=== PATIENT | female | born 1955 | race Caucasian/White ===

== ENCOUNTER 2017-09-02 23:47 | Emergency (ER) | payer BC ==
[2017-09-02] MEDS ORDERED: Morphine INJ* 4 MG/ML 1 ML CARPUJECT IV ONE (23:51)
[2017-09-02] MEDS ORDERED: Ondansetron INJ* 2 MG/ML VIAL IV ONE (23:51)
[2017-09-02] MEDS: NS 0.9% 1000 ML* 2,000 ML IV ONE (23:59)
[2017-09-03 00:11] LABS: Hematocrit 42 % (35-47); Hemoglobin 14.6 g/dl (12.0-16.0); Mean Corpuscular HGB Conc 35 g/dl (31-36); Mean Corpuscular Hemoglobin 31 pg (27-31); Mean Corpuscular Volume 89 fL (80-97); Mean Platelet Volume 10 um3 (7.4-10.4); Red Blood Count 4.75 10^6/ul (4.0-5.4); Red Cell Distribution Width 13 % (10.5-15)
[2017-09-03 00:24] LABS: C Reactive Protein 7.02 mg/L (< 5.00); Calcium 8.9 mg/dL (8.6-10.3); EGFR African American 109.4 (>60); EGFR Non-African American 85.1 (>60); Globulin 3.1 g/dL (2-4); Potassium 3.4 mmol/L (3.5-5.0); Total Bilirubin 0.6 mg/dL (0.2-1.0); Total Protein 7.1 g/dL (6.4-8.9)
[2017-09-03] MEDS: NS 0.9% 1000 ML* 2,000 ML IV ONE (01:39)
[2017-09-03 02:04] LABS: Urine Bacteria Absent (Absent); Urine Bilirubin Negative (Negative); Urine Glucose Negative (Negative); Urine Nitrite Negative (Negative)
[2017-09-03] MEDS ORDERED: Levofloxacin TAB* 500 MG PO ONE ×2 (03:13→03:15)
[2017-09-03 03:47] VITALS: BP 104/37
--- NOTE | 2017-09-03 07:41 | RAD ---
CLINICAL HISTORY: Abdominal pain COMPARISON: None TECHNIQUE: Multiple contiguous axial CT scans were obtained of the abdomen and pelvis, without intravenous contrast enhancement. Coronal and sagittal multiplanar reformations are submitted for review. Oral contrast was not administered. FINDINGS: The study is limited by the lack of intravenous contrast. This limits evaluation of the solid organs and vasculature. LUNG BASES: The lung bases are clear. LIVER: The liver is normal in shape, size, contour, and attenuation. BILE DUCTS: There is no intrahepatic or extrahepatic biliary dilatation. GALLBLADDER: The gallbladder is not visualized. Surgical clips are noted in the gallbladder fossa. PANCREAS: The tail of the pancreas is atretic/hypoplastic. There is no pancreatic ductal dilatation or appreciable pancreatic mass. SPLEEN: Normal in size and appearance. UPPER GI TRACT: Evaluation of the gastrointestinal tract is limited by incomplete gastric distention. The upper GI tract is unremarkable. SMALL BOWEL AND MESENTERY: The small bowel is normal in contour, course, and caliber. There is no obstruction or dilatation. COLON: The colon is normal in contour, course, caliber. There is no pericolonic inflammatory change. There is a tubular, vermiform, hollow viscus that is blind ending, and originates from the cecum, consistent with a normal appendix. There is no periappendiceal inflammatory change. This is best seen on coronal images 56 through 64. ADRENALS: Normal bilaterally. KIDNEYS: There are parapelvic cysts. There is no appreciable hydronephrosis. There is a punctate nonobstructing calculus of the report of the right kidney on axial image 59 BLADDER: The bladder is smooth in contour. PELVIC ORGANS: The uterus and adnexa are grossly normal for technique. AORTA: The aorta is normal. IVC: Unremarkable LYMPH NODES: There is no lymphadenopathy by size criteria. ABDOMINAL WALL: There is no evidence for abdominal wall hernia. BONES AND SOFT TISSUES: There are mild diffuse degenerative changes. OTHER: None IMPRESSION: PUNCTATE NONOBSTRUCTING RIGHT RENAL STONE. NO HYDRONEPHROSIS.
--- NOTE | 2017-09-05 08:59 | PN ---
Progress Note - Progress Note Date of Service: 09/03/17 Note: diagnosed and treated for UTI. culture results show 1-10,000 of group b strep. d/c on levofloxacin. no further action required at this time
--- NOTE | 2017-09-22 03:30 | ED ---
Asia Lopez Thomas, scribed for Ellen Coto MD on 09/03/17 at 0006 . Abdominal Pain/Female - HPI Summary HPI Summary: The pt is a 61 y/o F presenting to the ED c/o LLQ abd pain that began about 90 minutes ago. The pain began when she tried to urinate. The pain is waxing and waning. The pain is rated 10/10. The pain is aggravated by nothing and is alleviated by nothing. 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 She had similar pain yesterday that spontaneously resolved. Pt additionally c/o diaphoresis. PSHx includes cholecystectomy and gallbladder removal. - History of Current Complaint Chief Complaint: EDFlankPain Stated Complaint: FLANK PAIN Time Seen by Provider: 09/02/17 23:59 Hx Obtained From: Patient Hx Last Menstrual Period: n/a Onset/Duration: Lasting Minutes - 90, Still Present Timing: Constant - waxing and waning Severity Currently: Severe Pain Intensity: 10 Pain Scale Used: 0-10 Numeric Location: Discrete At: LLQ Aggravating Factor(s): Nothing Alleviating Factor(s): Nothing Associated Signs and Symptoms: Positive: Diaphoresis Allergies/Adverse Reactions: Allergies Allergy/AdvReac Type Severity Reaction Status Date / Time Ketorolac Tromethamine Allergy Abdominal Verified 07/24/16 20:27 [From Toradol] Pain Naproxen Allergy Abdominal Verified 07/24/16 20:27 Pain Ibuprofen AdvReac Abdominal Verified 07/24/16 20:27 Pain ENVIRONMENTAL Allergy Unknown Uncoded 07/24/16 20:27 Reaction Details PMH/Surg Hx/FS Hx/Imm Hx Previously Healthy: No Endocrine/Hematology History: Denies: Hx Diabetes Cardiovascular History: Denies: Hx Pacemaker/ICD, Other Cardiovascular Problems/Disorders Comment Only: Hx Hypertension - usually normal til today Respiratory History: Reports: Hx Asthma - SLIGHT FROM BRONCHITIS Denies: Other Respiratory Problems/Disorders GI History: Reports: Hx Gastroesophageal Reflux Disease - OCCASIONAL Comment Only: Hx Ulcer - DENIES History: Denies: Hx Renal Disease Musculoskeletal History: Reports: Other Musculoskeletal History - DDD NECK Sensory History: Reports: Hx Contacts or Glasses - GLASSES Denies: Hx Hearing Aid Opthamlomology History: Reports: Hx Contacts or Glasses - GLASSES Neurological History: Denies: Other Neuro Impairments/Disorders Psychiatric History: Denies: Hx Panic Disorder - Surgical History Surgery Procedure, Year, and Place: gallbladder, 1995, [facility]. 2 c-sections, 1975 , 1977. ANKLE FX, 2015, LEFT ANKLE, [facility]. TONSILECTOMY. right rotator cuff Hx Anesthesia Reactions: No - Immunization History Date of Tetanus Vaccine: Unk Date of Influenza Vaccine: None Infectious Disease History: No Infectious Disease History: Denies: Hx Clostridium Difficile, Hx Hepatitis, Hx Human Immunodeficiency Virus (HIV), Hx of Known/Suspected MRSA, Hx Shingles, Hx Tuberculosis, Hx Known/ Suspected VRE, Hx Known/Suspected VRSA, History Other Infectious Disease, Traveled Outside the [place] in Last 30 Days - Family History Known Family History: Positive: Hypertension, Respiratory Disease - Social History Alcohol Use: Weekly Alcohol Amount: 1 PER WEEK Hx Substance Use: No Substance Use Type: Reports: None Hx Tobacco Use: No Smoking Status (MU): Never Smoked Tobacco Have You Smoked in the Last Year: No Review of Systems Positive: Skin Diaphoresis. Negative: Fever Positive: Abdominal Pain - LLQ All Other Systems Reviewed And Are Negative: Yes Physical Exam - Summary Physical Exam Summary: VITAL SIGNS: Reviewed. GENERAL: ~Patient is a well-developed and nourished (MALE OR FEMALE) who is lying comfortable in the stretcher. ~Patient is not in any acute respiratory distress. HEAD AND FACE: No signs of trauma. ~No ecchymosis, hematomas or skull depressions. No sinus tenderness. EYES: PERRLA, EOMI x 2, No injected conjunctiva, no nystagmus. EARS: Hearing grossly intact. Ear canals and tympanic membranes are within normal limits. MOUTH: Oropharynx within normal limits. NECK: Supple, trachea is midline, no adenopathy, no JVD, no carotid bruit, no c- spine tenderness, neck with full ROM. CHEST: Symmetric, no tenderness at palpation LUNGS: Clear to auscultation bilaterally. No wheezing or crackles. CVS: Regular rate and rhythm, S1 and S2 present, no murmurs or gallops appreciated. ABDOMEN: She has mild LLQ tenderness. Soft. No signs of distention. No rebound no guarding, and no masses palpated. Bowel sounds are normal. BACK: She has mild left CVA tenderness. EXTREMITIES: FROM in all major joints, no edema, no cyanosis or clubbing. NEURO: Alert and oriented x 3. No acute neurological deficits. Speech is normal and follows commands. SKIN: Dry and warm Triage Information Reviewed: Yes Vital Signs On Initial Exam: Initial Vitals Temp Pulse Resp BP Pulse Ox 98.2 F 70 24 151/50 100 09/02/17 23:50 09/02/17 23:50 09/02/17 23:50 09/02/17 23:50 09/02/17 23:50 Vital Signs Reviewed: Yes Diagnostics - Vital Signs Vital Signs Temp Pulse Resp BP Pulse Ox 09/02/17 23:58 20 09/02/17 23:50 98.2 F 70 24 151/50 100 - Laboratory Result Diagrams: 09/02/17 23:50 09/02/17 23:50 Lab Statement: Any lab studies that have been ordered have been reviewed, and results considered in the medical decision making process. - CT CT Abd/Pel CT Interpretation: No Acute Changes - Punctate stone right kidney. No ureterolithiasis or obstructive uropathy. No bladder calculi. Probable parapelvic cysts lower pole left kidney. Unremarkable pancreas. Cholecystectomy. No bowel obstruction, colitis, diverticulitis, free fluid or free air. Normal appendix. No inguinal-region hernias. ED physician has reviewed this report and agrees. CT Interpretation Completed By: Radiologist Re-Evaluation - Re-Evaluation First Eval Re-Evaluation Time: 03:12 Change: Improved Comment: I informed the patient of the labs and CT results. She is feeling better. Abdominal Pain Fem Course/Dx - Course Course Of Treatment: The pt is a 61 y/o F presenting to the ED c/o LLQ abd pain that began about 90 minutes ago. The pain began when she tried to urinate. The pain is waxing and waning. The pain is rated 10/10. The pain is aggravated by nothing and is alleviated by nothing. 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 She had similar pain yesterday that spontaneously resolved. Pt additionally c/o diaphoresis. PSHx includes cholecystectomy and gallbladder removal. In the ED course the patient was given IV fluids, morphine, and Zofran. Bloodwork was obtained. UA shows 3+ blood, 2+ leukocyte esterase, 3+ WBC , and 3+ RBC. CT Abd/Pel obtained with results earlier in this report. The patient is diagnosed with UTI. The patient is instructed to follow up with primary care. The patient is prescribed antibiotics. Patient is agreeable with this plan. - Diagnoses Provider Diagnoses: UTI (urinary tract infection) Discharge - Discharge Plan Condition: Stable Disposition: HOME Patient Education Materials: Urinary Tract Infection in Women (ED) Referrals: Hal Orozco MD [Primary Care Provider] - 3 Days Additional Instructions: Follow up with your primary care provider in 3 days. Return to the emergency department for any new or worsening symptoms. The documentation as recorded by the Asia pérez Thomas accurately reflects the service I personally performed and the decisions made by , Ellen Coto MD.
== END 2017-09-03 04:21 | disposition home or self-care (01) ==
LOC: ED 23:47
DX: N39.0 Urinary tract infection, site not specified (principal); B95.1 Streptococcus, group B, as the cause of diseases classified elsewhere; I10 Essential (primary) hypertension
CPT/HCPCS: 36415; 74176; 80053; 81003; 81015; 83690; 85025; 86140; 87077; 87086; 96360; 96374; 96375; 99282; J2270; J2405

== ENCOUNTER 2017-11-22 07:22 | Emergency (ER) | payer BC ==
[2017-11-22 07:39] VITALS: BP 137/71
--- NOTE | 2017-11-22 08:31 | UC ---
Headache HPI - HPI Summary HPI Summary: SUDDEN ONSET YESTERDAY OF LEFT PARIETAL ARCINIEGA. "FEELS LIKE SOMEONE IS STABBING ME IN THE HEAD". DENIES ANY HEARING LOSS OR DENTAL PAIN. PT DOES NOT NORMALLY GET HEADACHES. NO NAUSEA OR FEVER BUT DOES REPORT ABOUT 2 WEEKS OF NIGHT SWEATS AND INTERMITTENT DIZZINESS OVER THE PAST WEEK. DENIES ANY VISUAL DISTURBANCES OF FOCAL NEUROLOGIC DEFICITS. PAIN COMES ON SUDDENLY, LASTS FOR A FEW SECONDS THEN RESOLVES LEAVING A RESIDUAL MILD DISCOMFORT. HAS MULTIPLE EPISODES PER HOUR. - History Of Current Complaint Chief Complaint: UCEar Stated Complaint: EAR PAIN PAIN ON SIDE OF HEAD Time Seen by Provider: 11/22/17 08:00 Hx Obtained From: Patient, Family/Supervisor [employer] - Hx Last Menstrual Period: n/a Onset/Duration: Sudden Onset, Lasting Hours, Still Present Pain Intensity: 3 - 10/10 AT IT'S WORST Pain Scale Used: 0-10 Numeric Character: Sharp Location of Headache: Parietal Aggravating Factor(s): Nothing Allevating Factor(s): Nothing Associated Signs And Symptoms: Positive: Dizziness. Negative: Nausea, Vomiting , Fever, Neck Pain, Neck Stiffness, Decreased LOC, Visual Changes - Allergies/Home Medications Allergies/Adverse Reactions: Allergies Allergy/AdvReac Type Severity Reaction Status Date / Time MS Ketorolac Tromethamine Allergy Abdominal Verified 11/22/17 07:39 [From Toradol] Pain MS Naproxen [Naproxen] Allergy Abdominal Verified 11/22/17 07:39 Pain MS Ibuprofen [Ibuprofen] AdvReac Abdominal Verified 11/22/17 07:39 Pain ENVIRONMENTAL Allergy Unknown Uncoded 11/22/17 07:39 Reaction Details PMH/Surg Hx/FS Hx/Imm Hx Respiratory History: Asthma - Surgical History Surgical History: Yes Surgery Procedure, Year, and Place: gallbladder, 1995, [facility]. 2 c-sections, 1975 , 1977. ANKLE FX, 2015, LEFT ANKLE, [facility]. TONSILECTOMY. right rotator cuff - Family History Known Family History: Positive: Hypertension, Respiratory Disease Family History: PROSTATE CANCER - DAD - Social History Alcohol Use: Weekly Alcohol Amount: 1 PER WEEK Substance Use Type: None Smoking Status (MU): Never Smoked Tobacco Have You Smoked in the Last Year: No Review of Systems Constitutional: Fatigue, Other - NIGHT SWEATS ENT: Ear Ache Respiratory: Negative Cardiovascular: Negative Gastrointestinal: Negative Musculoskeletal: Negative Neurological: Headache, Other - DIZZINESS All Other Systems Reviewed And Are Negative: Yes Physical Exam Triage Information Reviewed: Yes Appearance: Well-Appearing, Well-Nourished, Pain Distress - MOD Vital Signs: Initial Vital Signs Temp 97.3 F 11/22/17 07:35 Pulse 67 11/22/17 07:35 Resp 20 11/22/17 07:35 BP 137/71 11/22/17 07:35 Pulse Ox 96 11/22/17 07:35 Vital Signs Reviewed: Yes Eyes: Positive: Conjunctiva Clear ENT: Positive: Hearing grossly normal, Pharynx normal, TMs normal Neck: Positive: Supple, Nontender, No Lymphadenopathy Respiratory Exam: Normal Cardiovascular Exam: Normal Abdomen Description: Positive: Soft Musculoskeletal: Positive: ROM Intact, No Edema Neurological: Positive: Alert, Muscle Tone Normal, Other: - CN II-XII GROSSLY INTACT BILATERALLY. NEG PRONATOR DRIFT. FINGER TO NOSE INTACT BILATERALLY. HEEL TO SELBY INTACT BILATERALLY. RAPID ALTERNATING MVMTS INTACT. 5/5 STRENGTH Psychological: Positive: Normal Response To Family, Age Appropriate Behavior Skin: Negative: rashes Headache Course/Dx - Course Course Of Treatment: GIVEN SX OF NEW ONSET ARCINIEGA WITH RECENT NIGHT SWEATS AND DIZZINESS, CONCERN FOR INTRACRANIAL PATHOLOGY. RECOMMEND ED FOR FURTHER EVAL. - Differential Dx/Diagnosis Provider Diagnoses: ACUTE HEADACHE Discharge - Discharge Plan Condition: Stable Disposition: OTHER Discharge Disposition Comment: [place] [facility] [place] [facility] Patient Education Materials: Acute Headache (ED) Referrals: Hal Orozco MD [Primary Care Provider] - If Needed Additional Instructions: GIVEN YOUR SYMPTOMS OF NEW ONSET HEADACHE WITH RECENT NIGHT SWEATS AND DIZZINESS WOULD RECOMMEND YOU GO DIRECTLY TO THE [facility] FROM HERE FOR FURTHER EVAL.
== END 2017-11-22 08:25 ==
LOC: UCEAST 07:22
DX: R51 Headache (principal); R42 Dizziness and giddiness; R61 Generalized hyperhidrosis; J45.909 Unspecified asthma, uncomplicated; Z88.6 Allergy status to analgesic agent; Z88.5 Allergy status to narcotic agent; Z90.49 Acquired absence of other specified parts of digestive tract
CPT/HCPCS: 99212; G0463

== ENCOUNTER 2017-11-22 08:46 | Emergency (ER) | payer BC ==
[2017-11-22 09:40] LABS: ABS Basophils 0.1 10^3/ul (0-0.2); ABS Eosinophils 0.1 10^3/ul (0-0.6); ABS Lymphocytes 2.3 10^3/ul (1.0-4.8); ABS Monocytes 0.6 10^3/ul (0-0.8); ABS Neutrophils 3.2 10^3/ul (1.5-7.7); ABS Nucleated RBC 0 10^3/ul; Eosinophil % 1.7 % (0-6); Hematocrit 43 % (35-47); Hemoglobin 14.7 g/dl (12.0-16.0); Lymphocyte % 36.1 % (25-47); Mean Corpuscular HGB Conc 34 g/dl (31-36); Mean Corpuscular Hemoglobin 31 pg (27-31); Mean Corpuscular Volume 90 fL (80-97); Mean Platelet Volume 11 um3 (7.4-10.4); Nucleated Red Blood Cells % 0.1; Platelet Count 201 10^3/ul (150-450); Red Blood Count 4.79 10^6/ul (4.0-5.4); Red Cell Distribution Width 13 % (10.5-15); White Blood Count 6.4 10^3/ul (3.5-10.8)
--- NOTE | 2017-11-22 10:07 | RAD ---
INDICATION: Dizziness. COMPARISON: Comparison is made with a prior CT of the brain from August 04, 2011. TECHNIQUE: Contiguous axial sections of the brain were obtained from the skull base to the vertex without contrast. FINDINGS: The ventricles, cisterns and sulci are within normal limits. There is suggestion of a small area of encephalomalacia in the posterior right cerebellar hemisphere which is unchanged. No significant focal abnormality or mass effect is seen. There is no evidence for hemorrhage. No significant focal osseous abnormality is seen. The visualized portion of the paranasal sinuses and mastoid air cells appear clear. IMPRESSION: NO EVIDENCE FOR ACUTE INTRACRANIAL ABNORMALITY.
[2017-11-22 11:02] VITALS: BP 140/78
--- NOTE | 2017-11-22 13:28 | ED ---
Headache - HPI Summary HPI Summary: Patient presents to the ED with chief complaint of left parietal headache with intermittent dizziness 1 week. She has never had this before, denies any history of migraines or headaches. Denies any shortness of breath or chest pain. Has no cardiac history, but endorses a strong family history. She denies fever, upper respiratory infection, other recent illness or sick contacts. She has been feeling otherwise well. Denies any trauma to the head. While she endorses mild intermittent dizziness which comes in waves while having the headache, she notes to the headache as her primary complaint. She states the headache is "not worst of life " however also states that at its worst, it is rated 10 out of 10. Denies any known history of temporal arteritis or other vasculitis. She has been experiencing hot and cold symptoms to which she associates with postmenopausal, although it has been several years since she has had these symptoms until one week ago. She is close follow-up with her PCP and is able to see them next week. Denies visual changes, memory loss, confusion, or other neurological deficits. Denies smoking, drug use, medication changes or hypertension. - History Of Current Complaint Chief Complaint: EDHeadache Stated Complaint: HEADACHE Time Seen by Provider: 11/22/17 09:03 Hx Obtained From: Patient Hx Last Menstrual Period: n/a Onset/Duration: Started weeks ago Initially Headache Was: Initial Pain Scale(0-10)= - 10 Currently Pain Is: Current Pain Scale(0-10)= - 5, Mild Timing: Constant Character: Throbbing Aggravating Factor: Nothing Allevating Factors: Nothing - Risk Factors SAH Risk Factors: Negative Meningitis Risk Factors: Negative SDH Risk Factors: Negative Temporal Arteritis Risk Factors: Female, , Greater Than 60 Years Old - Allergies/Home Medications Allergies/Adverse Reactions: Allergies Allergy/AdvReac Type Severity Reaction Status Date / Time MS Ketorolac Tromethamine Allergy Abdominal Verified 11/22/17 07:39 [From Toradol] Pain MS Naproxen [Naproxen] Allergy Abdominal Verified 11/22/17 07:39 Pain MS Ibuprofen [Ibuprofen] AdvReac Abdominal Verified 11/22/17 07:39 Pain ENVIRONMENTAL Allergy Unknown Uncoded 11/22/17 07:39 Reaction Details Home Medications: Home Medications Esomeprazole(NF) [NEXium(NF)] 20 mg PO DAILY PRN 11/22/17 [History Confirmed 07/01] Multivitamins/Minerals TAB* [Theragran/minerals TAB*] 1 tab PO DAILY 11/22/17 [ History Confirmed 11/22/17] PMH/Surg Hx/FS Hx/Imm Hx Previously Healthy: Yes Endocrine/Hematology History: Denies: Hx Diabetes, Hx Thyroid Disease Cardiovascular History: Denies: Hx Hypertension - usually normal til today, Hx Pacemaker/ICD, Other Cardiovascular Problems/Disorders Respiratory History: Reports: Hx Asthma - SLIGHT FROM BRONCHITIS Denies: Other Respiratory Problems/Disorders GI History: Reports: Hx Gastroesophageal Reflux Disease - OCCASIONAL Denies: Hx Ulcer - DENIES History: Denies: Hx Renal Disease Musculoskeletal History: Reports: Other Musculoskeletal History - DDD NECK Sensory History: Reports: Hx Contacts or Glasses - GLASSES Denies: Hx Hearing Aid Opthamlomology History: Reports: Hx Contacts or Glasses - GLASSES Neurological History: Denies: Other Neuro Impairments/Disorders Psychiatric History: Denies: Hx Panic Disorder - Surgical History Surgery Procedure, Year, and Place: gallbladder, 1995, [facility] [place]. 2 c-sections, 1975 , 1977. ANKLE FX, 2015, LEFT ANKLE, [facility]. TONSILECTOMY. right rotator cuff Hx Anesthesia Reactions: No - Immunization History Date of Tetanus Vaccine: Unk Date of Influenza Vaccine: None Hx Pertussis Vaccination: No Immunizations Up to Date: Unable to Obtain/Confirm Infectious Disease History: No Infectious Disease History: Denies: Hx Clostridium Difficile, Hx Hepatitis, Hx Human Immunodeficiency Virus (HIV), Hx of Known/Suspected MRSA, Hx Shingles, Hx Tuberculosis, Hx Known/ Suspected VRE, Hx Known/Suspected VRSA, History Other Infectious Disease, Traveled Outside the [place] in Last 30 Days - Family History Known Family History: Positive: Hypertension, Respiratory Disease Family History: PROSTATE CANCER - DAD - Social History Occupation: Employed Full-time Lives: With Family Alcohol Use: Occasionally Alcohol Amount: 1 PER WEEK Hx Substance Use: No Substance Use Type: Reports: None Hx Tobacco Use: No Smoking Status (MU): Never Smoked Tobacco Have You Smoked in the Last Year: No Review of Systems Constitutional: Negative Negative: Fever, Chills, Fatigue Eyes: Negative Respiratory: Negative Gastrointestinal: Negative Positive: no symptoms reported, see HPI Musculoskeletal: Negative Skin: Negative Neurological: Other - intermittent dizziness Positive: Headache All Other Systems Reviewed And Are Negative: Yes Physical Exam Triage Information Reviewed: Yes Vital Signs On Initial Exam: Initial Vitals Temp Pulse Resp BP Pulse Ox 97.3 F 60 17 154/84 96 11/22/17 09:05 11/22/17 09:05 11/22/17 09:05 11/22/17 09:05 11/22/17 09:05 Vital Signs Reviewed: Yes Appearance: Positive: Well-Appearing, Well-Nourished Skin: Positive: Warm, Skin Color Reflects Adequate Perfusion Head/Face: Positive: Normal Head/Face Inspection Eyes: Positive: EOMI, ADINA Neck: Positive: Supple, No Lymphadenopathy Respiratory/Lung Sounds: Positive: Breath Sounds Present Cardiovascular: Positive: RRR, Pulses are Symmetrical in both Upper and Lower Extremities Musculoskeletal: Positive: Normal, Strength/ROM Intact Neurological: Positive: Speech Normal Psychiatric: Positive: Normal, Affect/Mood Appropriate AVPU Assessment: Alert Diagnostics - Vital Signs Vital Signs Temp Pulse Resp BP Pulse Ox 11/22/17 11:01 60 16 140/78 96 11/22/17 10:53 66 95 11/22/17 10:00 68 161/101 97 11/22/17 09:31 63 148/76 96 11/22/17 09:10 133/66 11/22/17 09:09 59 96 11/22/17 09:05 97.3 F 60 17 154/84 96 - Laboratory Lab Results: Lab Results 11/22/17 11/22/17 11/22/17 Range/Units 09:30 09:30 09:30 WBC 6.4 (3.5-10.8) 10^3/ul RBC 4.79 (4.0-5.4) 10^6/ul Hgb 14.7 (12.0-16.0) g/dl Hct 43 (35-47) % MCV 90 (80-97) fL MCH 31 (27-31) pg MCHC 34 (31-36) g/dl RDW 13 (10.5-15) % Plt Count 201 (150-450) 10^3/ul MPV 11 H (7.4-10.4) um3 Neut % (Auto) 51.2 (38-83) % Lymph % (Auto) 36.1 (25-47) % [place] % (Auto) 9.9 H (1-9) % Eos % (Auto) 1.7 (0-6) % Baso % (Auto) 1.1 (0-2) % Absolute Neuts (auto) 3.2 (1.5-7.7) 10^3/ul Absolute Lymphs (auto) 2.3 (1.0-4.8) 10^3/ul Absolute Monos (auto) 0.6 (0-0.8) 10^3/ul Absolute Eos (auto) 0.1 (0-0.6) 10^3/ul Absolute Basos (auto) 0.1 (0-0.2) 10^3/ul Absolute Nucleated RBC 0 10^3/ul Nucleated RBC % 0.1 ESR 30 (0-30) mm/Hr Sodium 133 (133-145) mmol/L Potassium 4.0 (3.5-5.0) mmol/L Chloride 102 (101-111) mmol/L Carbon Dioxide 25 (22-32) mmol/L Anion Gap 6 (2-11) mmol/L BUN 17 (6-24) mg/dL Creatinine 0.73 (0.51-0.95) mg/dL Est GFR ( Amer) 104.2 (>60) Est GFR (Non-Af Amer) 81.0 (>60) BUN/Creatinine Ratio 23.3 H (8-20) Glucose 126 H (70-100) mg/dL Calcium 9.5 (8.6-10.3) mg/dL Total Bilirubin 0.50 (0.2-1.0) mg/dL AST 16 (13-39) U/L ALT 14 (7-52) U/L Alkaline Phosphatase 57 (34-104) U/L Troponin I 0.00 (<0.04) ng/mL C-Reactive Protein 6.13 H (< 5.00) mg/L B-Natriuretic Peptide 140 H ( - 100) pg/mL Total Protein 7.0 (6.4-8.9) g/dL Albumin 4.1 (3.2-5.2) g/dL Globulin 2.9 (2-4) g/dL Albumin/Globulin Ratio 1.4 (1-3) Result Diagrams: 11/22/17 09:30 02 09:30 Lab Statement: Any lab studies that have been ordered have been reviewed, and results considered in the medical decision making process. Headache Course/Dx - Course Course Of Treatment: During the course of treatment, the patient is evaluated for left-sided parietal and temporal headache without associated aura, photophobia, phonophobia. Intermittent dizziness as well. Symptoms have been present for 1 week. No tearing to be concerned for cluster headaches, left- sided only with less concerned for tension headache. Due to age, female, , she is higher risk for temporal arteritis, ESR obtained and negative at only 30. No sinus pressure for concern for sinus headache. Denies any recent stressors. I have advised we obtain a CT of the brain and baseline labs. All labs obtained and within normal limits. CT brain shows no active or acute pathology. I discussed the results with the patient. I discussed, I am unable to rule in the reason for her headaches, but am able to rule out to a marginal degree many more concerning/emergent conclusions. Troponin negative. Vital signs stable, including blood pressure. No visual changes or signs of end organ damage. She is okay to follow up with her PCP regarding worsening symptoms, I have advised if the headaches continue, to return to the ED or follow-up with neurology. She agrees with this plan and voices no concerns at this time and is okay for discharge at this time. She is advised to take Tylenol 650 mg for headache. - Diagnoses Differential Diagnosis/HQI/PQRI: Migraine, Sinus Headache, Temporal Arteritis, Tension Headache, Viral Syndrome Provider Diagnoses: Headache Discharge - Discharge Plan Condition: Stable Disposition: HOME Patient Education Materials: General Headache (ED) Referrals: Hal Orozco MD [Primary Care Provider] - Danny Croft MD [Medical Doctor] - Additional Instructions: Please follow up with PCP If any symptoms become worse, follow-up with a neurologist I have given your referral Tylenol 650 mg up to 3-4 times daily for any headache Drink plenty of water Rest
== END 2017-11-22 11:01 | disposition home or self-care (01) ==
LOC: ED 08:46
DX: R51 Headache (principal); Z88.6 Allergy status to analgesic agent; Z88.5 Allergy status to narcotic agent
CPT/HCPCS: 36415; 70450; 80053; 83880; 84484; 85025; 85652; 86140; 93005; 99282

== ENCOUNTER 2019-04-24 14:53 | Emergency (ER) | payer BC ==
[2019-04-24 16:30] VITALS: BP 141/73
--- NOTE | 2019-04-24 16:32 | ED ---
Skin Complaint - HPI Summary HPI Summary: Patient is a 63-year-old female who presents emergency department for redness and warmth to her right lower arm 3-4 days. Patient states she was outside in the garden Saturday and believes she was bit by an insect her right arm. Patient states that areas aggressively gotten redder and larger. Patient states she did outline the area in pen and states that redness spread outside of lines. No fever, chills, nausea, vomiting, headache, joint pain. Patient is not diabetic. Symptoms are mild in severity. No current modifying factors. - History of Current Complaint Chief Complaint: EDAnimalBite Time Seen by Provider: 04/24/19 16:06 Stated Complaint: BUG BITE PER PT Hx Obtained From: Patient Hx Last Menstrual Period: n/a Pain Intensity: 0 - Allergy/Home Medications Allergies/Adverse Reactions: Allergies Allergy/AdvReac Type Severity Reaction Status Date / Time NSAIDS (Non-Steroidal Allergy Abdominal Verified 04/24/19 15:00 Anti-Inflamma Pain PMH/Surg Hx/FS Hx/Imm Hx Previously Healthy: Yes Endocrine/Hematology History: Denies: Hx Diabetes, Hx Thyroid Disease Cardiovascular History: Denies: Hx Hypertension - usually normal til today, Hx Pacemaker/ICD, Other Cardiovascular Problems/Disorders Respiratory History: Reports: Hx Asthma - SLIGHT FROM BRONCHITIS Denies: Other Respiratory Problems/Disorders GI History: Reports: Hx Gastroesophageal Reflux Disease - OCCASIONAL Denies: Hx Ulcer - DENIES History: Denies: Hx Renal Disease Musculoskeletal History: Reports: Other Musculoskeletal History - DDD NECK Sensory History: Reports: Hx Contacts or Glasses - GLASSES Denies: Hx Hearing Aid Opthamlomology History: Reports: Hx Contacts or Glasses - GLASSES Neurological History: Denies: Other Neuro Impairments/Disorders Psychiatric History: Denies: Hx Panic Disorder - Surgical History Surgery Procedure, Year, and Place: gallbladder, 1995, [facility]. 2 c-sections, 1975 , 1977. ANKLE FX, 2015, LEFT ANKLE, [facility]. TONSILECTOMY. right rotator cuff Hx Anesthesia Reactions: No - Immunization History Date of Tetanus Vaccine: Unk Date of Influenza Vaccine: None Infectious Disease History: No Infectious Disease History: Denies: Hx Clostridium Difficile, Hx Hepatitis, Hx Human Immunodeficiency Virus (HIV), Hx of Known/Suspected MRSA, Hx Shingles, Hx Tuberculosis, Hx Known/ Suspected VRE, Hx Known/Suspected VRSA, History Other Infectious Disease, Traveled Outside the [place] in Last 30 Days - Family History Known Family History: Positive: Hypertension, Respiratory Disease, Non- Contributory Family History: PROSTATE CANCER - DAD - Social History Occupation: Employed Full-time Lives: With Family Alcohol Use: Occasionally Alcohol Amount: 1 PER WEEK Hx Substance Use: No Substance Use Type: Reports: None Hx Tobacco Use: No Smoking Status (MU): Never Smoked Tobacco Have You Smoked in the Last Year: No Review of Systems Constitutional: Negative Negative: Fever, Chills Musculoskeletal: Negative Positive: Rash Neurological: Negative Negative: Headache All Other Systems Reviewed And Are Negative: Yes Physical Exam Triage Information Reviewed: Yes Vital Signs On Initial Exam: Initial Vitals Temp Pulse Resp BP Pulse Ox 97.1 F 64 16 152/78 95 04/24/19 14:55 04/24/19 14:55 04/24/19 14:55 04/24/19 14:55 04/24/19 14:55 Vital Signs Reviewed: Yes Appearance: Positive: Well-Appearing - Pt. sitting in chair in NAD. Skin: Positive: Warm, Dry, Other - Roughly 4-5 cm annular area of erythema and warmth noted to right distal forearm on the doral aspect. Small darker area in center. No central clearing, induration or fluctuance. Full ROM of wrist Head/Face: Positive: Normal Head/Face Inspection Eyes: Positive: Normal, EOMI Neck: Positive: Supple Musculoskeletal: Positive: Normal, Strength/ROM Intact Neurological: Positive: Normal, CN Intact II-III Psychiatric: Positive: Affect/Mood Appropriate Diagnostics - Vital Signs Vital Signs Temp Pulse Resp BP Pulse Ox 04/24/19 14:55 97.1 F 64 16 152/78 95 - Laboratory Lab Statement: Any lab studies that have been ordered have been reviewed, and results considered in the medical decision making process. Course/Dx - Course Course Of Treatment: Patient presenting with mild cellulitis to right arm. Patient believes she is was initially bit by an insect but also questions if she had a tick bite. We'll check patient with doxycycline. Advised follow-up with PCP in 2 weeks for. Titer. To apply warm compresses and elevate. Return to the ER for increased redness, pain, swelling, fever or if concerned. Patient understands and agrees with plan. - Differential Diagnoses - Skin Complaint Differential Diagnoses: Abscess, Cellulitis, Contact Dermatitis, Tinea - Diagnoses Provider Diagnoses: Cellulitis Discharge - Sign-Out/Discharge Documenting (check all that apply): Patient Departure Patient Received Moderate/Deep Sedation with Procedure: No - Discharge Plan Condition: Good Disposition: HOME Prescriptions: DOXYcycline CAP(*) [DOXYcycline 100MG CAP(*)] 100 mg PO BID #20 cap Patient Education Materials: Cellulitis (ED) Referrals: Hal Orozco MD [Primary Care Provider] - Additional Instructions: Follow up with PCP on Saturday for recheck Apply warm compresses and elevate arm Return to ER for increased redness, swelling, pain, fever, or if concerned - Billing Disposition and Condition Condition: GOOD Disposition: Home
== END 2019-04-24 16:30 | disposition home or self-care (01) ==
LOC: ED 14:53
DX: L03.113 Cellulitis of right upper limb (principal); Z88.6 Allergy status to analgesic agent
CPT/HCPCS: 99281

== ENCOUNTER 2019-04-26 17:36 | Emergency (ER) | payer BC ==
--- NOTE | 2019-04-26 19:33 | ED ---
Skin Complaint - HPI Summary HPI Summary: Patient complains of bug bite to right wrist 3 days ago with subsequent swelling and erythema. Patient seen here Saturday for same. Started on doxycycline Saturday evening. Patient states abdominal discomfort, nausea and diarrhea starting today, history of same reaction to doxycycline. Patient hoping she can get different antibiotic. Denies any other pain injury or symptoms. - History of Current Complaint Chief Complaint: EDAnimalBite Time Seen by Provider: 04/26/19 18:28 Stated Complaint: BUG BITE ON LEFT ARM, ABD PAIN PER PT Hx Obtained From: Patient Hx Last Menstrual Period: n/a Onset/Duration: Started Hours Ago Skin Exposure Onset/Duration: Hours Ago Timing: Intermittent Onset Severity: Mild Current Severity: Mild Pain Intensity: 3 Pain Scale Used: 0-10 Numeric Skin Location: Diffuse Aggravating Symptom(s): Other: Alleviating Symptom(s): Nothing Associated Signs & Symptoms: Nausea, Abdominal Pain - Allergy/Home Medications Allergies/Adverse Reactions: Allergies Allergy/AdvReac Type Severity Reaction Status Date / Time NSAIDS (Non-Steroidal Allergy Abdominal Verified 04/26/19 17:44 Anti-Inflamma Pain PMH/Surg Hx/FS Hx/Imm Hx Endocrine/Hematology History: Denies: Hx Diabetes, Hx Thyroid Disease Cardiovascular History: Denies: Hx Hypertension - usually normal til today, Hx Pacemaker/ICD, Other Cardiovascular Problems/Disorders Respiratory History: Reports: Hx Asthma - SLIGHT FROM BRONCHITIS Denies: Other Respiratory Problems/Disorders GI History: Reports: Hx Gastroesophageal Reflux Disease - OCCASIONAL Denies: Hx Ulcer - DENIES History: Denies: Hx Renal Disease Musculoskeletal History: Reports: Other Musculoskeletal History - DDD NECK Sensory History: Reports: Hx Contacts or Glasses - GLASSES Denies: Hx Hearing Aid Opthamlomology History: Reports: Hx Contacts or Glasses - GLASSES EENT History: Denies: Hx Deafness Neurological History: Denies: Other Neuro Impairments/Disorders Psychiatric History: Denies: Hx Panic Disorder - Surgical History Surgery Procedure, Year, and Place: gallbladder, 1995, [facility]. 2 c-sections, 1975 , 1977. ANKLE FX, 2015, LEFT ANKLE, [facility]. TONSILECTOMY. right rotator cuff Hx Anesthesia Reactions: No - Immunization History Date of Tetanus Vaccine: Unk Date of Influenza Vaccine: None Infectious Disease History: No Infectious Disease History: Denies: Hx Clostridium Difficile, Hx Hepatitis, Hx Human Immunodeficiency Virus (HIV), Hx of Known/Suspected MRSA, Hx Shingles, Hx Tuberculosis, Hx Known/ Suspected VRE, Hx Known/Suspected VRSA, History Other Infectious Disease, Traveled Outside the [place] in Last 30 Days - Family History Known Family History: Positive: Hypertension, Respiratory Disease, Non- Contributory Family History: PROSTATE CANCER - DAD - Social History Alcohol Use: Occasionally Alcohol Amount: 1 PER WEEK Hx Substance Use: No Substance Use Type: Reports: None Hx Tobacco Use: No Smoking Status (MU): Never Smoked Tobacco Have You Smoked in the Last Year: No Review of Systems Constitutional: Negative Eyes: Negative ENT: Negative Cardiovascular: Negative Respiratory: Negative Positive: Abdominal Pain, Nausea Genitourinary: Negative Musculoskeletal: Negative Skin: Other Neurological: Negative Psychological: Normal All Other Systems Reviewed And Are Negative: Yes Physical Exam - Summary Physical Exam Summary: Erythema and swelling surrounding possible bug bite on dorsal surface of the distal right forearm. Possible bull's-eye rash with red center, white clearing and second right larger [place] PMS intact distally. Vital Signs On Initial Exam: Initial Vitals Temp Pulse Resp BP Pulse Ox 98.3 F 72 18 148/82 95 04/26/19 17:40 04/26/19 17:40 04/26/19 17:40 04/26/19 17:40 04/26/19 17:40 Diagnostics - Vital Signs Vital Signs Temp Pulse Resp BP Pulse Ox 04/26/19 17:40 98.3 F 72 18 148/82 95 - Laboratory Lab Statement: Any lab studies that have been ordered have been reviewed, and results considered in the medical decision making process. Course/Dx - Course Course Of Treatment: Patient complains of bug bite to right wrist 3 days ago with subsequent swelling and erythema. Patient seen here Saturday for same. Started on doxycycline Saturday evening. Patient states abdominal discomfort, nausea and diarrhea starting today, history of same reaction to doxycycline. Patient hoping she can get different antibiotic. Denies any other pain injury or symptoms. Vital signs within normal limits. Possible bull's-eye rash on dorsal right wrist. Patient advised doxycycline preferred medication for possible Lyme disease. Patient was given this antibiotic initially for this reason. Patient states she will continue taking doxycycline and endure her normal reactions to doxycycline. - Diagnoses Provider Diagnoses: Rash Discharge - Sign-Out/Discharge Documenting (check all that apply): Patient Departure Patient Received Moderate/Deep Sedation with Procedure: No - Discharge Plan Condition: Stable Disposition: HOME Patient Education Materials: Lyme Disease (ED), Tick Bite (ED) Referrals: Hal Orozco MD [Primary Care Provider] - Additional Instructions: Continue taking doxycycline. Take with food. Continue to monitor area of irritation. Return to the ED for any new or worsening symptoms. - Billing Disposition and Condition Condition: STABLE Disposition: Home
[2019-04-26 19:40] VITALS: BP 126/80
== END 2019-04-26 19:39 | disposition home or self-care (01) ==
LOC: ED 17:36
DX: R21 Rash and other nonspecific skin eruption (principal); R10.9 Unspecified abdominal pain; R11.0 Nausea; Z88.6 Allergy status to analgesic agent; Z90.49 Acquired absence of other specified parts of digestive tract
CPT/HCPCS: 99282

== ENCOUNTER 2019-07-29 12:28 | Emergency (ER) | payer BC, OTHER ==
--- OUTSIDE RECORDS SUMMARY | 2019-07-29 13:04 | XMS REPORT | Summary of Care ---
:1955 Author Organization [facility] Address [address] [place] [address] Care Team Providers Name Role Phone Hal Orozco Primary Care Provider Reason for Referral Specialty Consult (Routine) Status Reason Specialty Diagnoses / Referred By Referred To Procedures Contact Contact Pending Review Diagnoses Fatigue, unspecified type Hal Orozco MD [facility], [address] [place] [address] [place] [address] Phone: [place] [address] [place] [address] Sleep Study (Routine) Status Reason Specialty Diagnoses / Procedures Referred By Contact Referred To Contact [address] [address] Phone: [phone] Reason for Visit Reason Comments Lab Work Only done 02/19/19 with an A1c done on 03/10/19 (6.6) Heartburn f/u,using nexium PRN Stress discuss work, her boss states she can't concentrate and is affecting her work, Pt doesn't believe it, but she admits to being bored at work and knows she doesn't want to be there Derm Problem seen Dr Leon and burned several lesions 06/12/19 Encounter Details Date Type Department Care Team Description 07/07/2019 Office Visit [place] [facility] Hal Orozco MD Fatigue, unspecified type (Primary Dx); Medicine [address] High cholesterol; [address] [place] [address] Type 2 diabetes mellitus without complication, without long-term current use of insulin ([facility] [place]) [place] [address] [phone] Allergies Active Allergy Reactions Severity Noted Date Comments Celecoxib GI Reaction 01/07/2008 Ibuprofen 01/07/2008 GI UPSET Naproxen Sodium GI Reaction 11/02/2013 documented as of this encounter (statuses as of 07/08/2019) Medications Medication Sig Dispensed Refills Start Date End Date Status Multiple Take by 0 Active Vitamins-Calcium mouth DAILY. (DAILY VITAMINS FOR WOMEN) Oral Tab meclizine (ANTIVERT) Take 1 Tab by 60 Tab 1 11/17/2015 Active 25 MG Oral mouth THREE TabIndications: TIMES DAILY Vertigo NEEDED for dizziness/tuan tigo. cetirizine (ZYRTEC Take 10 mg by 0 Active ALLERGY) 10 MG Oral mouth DAILY Tab NEEDED. Esomeprazole Take 1 Cap by 90 Cap 3 11/28/2017 Active (NEXIUM) 20 MG Oral mouth DAILY CAPSULE DELAYED NEEDED RELEASE (for gerd). metronidazole Apply to nose 45 g 0 11/28/2017 Active (METROGEL) 0.75 % daily as Apply externally Gel needed Peosta-3 Fatty Acids Take by 0 07/07/2019 Discontinued (FISH OIL) 1000 MG mouth DAILY. Oral Cap amoxicillin-clavulan Take 1 Tab by 20 Tab 0 02/16/2019 07/07/2019 Discontinued ic acid (AUGMENTIN) mouth TWICE 875-125 MG Oral Tab DAILY. documented as of this encounter (statuses as of 07/08/2019) Active Problems Problem Noted Date DVT (deep venous thrombosis) 07/05/2014 Overview: left leg, after ankle fracture. Needs anticoagulation until mid December 2014 Irritable bladder 07/05/2014 Acute deep vein thrombosis of leg 07/01/2014 BMI 34.0-34.9,adult 03/25/2012 Overview: This patient's BMI has been calculated and is above average, and BMI management plan is completed. General patient education discussion including: obesity- related excess mortality, weight loss link to reduction of risk factors for cardiac and other diseases, importance of long- term maintenance treatment in weight loss and is managed by Gerardo OROZCO MD . 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 07/02/2014 12/28/2014 Overview: Warfarin d/c by PCP 12/2014 Managed by: [facility] Referring Provider: Boris Indication: DVT LLE Target Range: 2.0-3.0 Duration: Not Noted Additional factors influencing anticoagulation: Esomeprazole increases warfarin effect Ibuprofen increases bleeding risk Initial Referral: 07/01/14 Initial ACS Orders: 07/12/14 documented as of this encounter (statuses as of 07/08/2019) Immunizations Name Administration Dates Next Due Depo Medrol (40mg) 02/08/2015 Influenza (IM) Preservative Free 09/13/2017 Influenza Vaccine Whole 07/23/2001 MMR VACCINE 04/28/2008 dT Vaccine 07/11/2004 documented as of this encounter Social History Tobacco Use Types Packs/Day Years Used Date Never Smoker Smokeless Tobacco: Never Used Comments: parents were smokers Alcohol Use Drinks/Week oz/Week Comments Not Asked 0 Standard drinks or equivalent 0.0 Sex Assigned at Date Recorded Not on file Job Start Date Occupation Industry Not on file Not on file Not on file Travel History Travel Start Travel End No recent travel history available. documented as of this encounter Last Filed Vital Signs Vital Sign Reading Time Taken Comments Blood Pressure 122/68 07/07/2019 12:10 PM EDT Pulse 60 07/07/2019 12:10 PM EDT Temperature - - Respiratory Rate - - Oxygen Saturation - - Inhaled Oxygen Concentration - - Weight 109.3 kg (241 lb) 07/07/2019 12:10 PM EDT Height 157.5 cm (5' 2") 07/07/2019 12:10 PM EDT Body Mass Index 44.08 07/07/2019 12:10 PM EDT documented in this encounter Patient Instructions Patient InstructionsHal Orozco MD - 07/07/2019 11:40 AM EDTContinue same medicines Get labwork and sleep test at [facility] [place] We'll decide what else to do after that If all ok, follow up in 5 monthsElectronically signed by Hal Orozco MD at 12:49 PM EDT documented in this encounter Progress Notes Hal Orozco MD - 07/07/2019 11:40 AM EDT PATIENT: Geraldine Weiss : 1955 DATE OF SERVICE: 07/07/2019 CHIEF COMPLAINT: Chief Complaint Patient presents with Lab Work Only done 02/19/19 with an A1c done on 03/10/19 (6.6) Heartburn f/u,using nexium PRN Stress discuss work, her boss states she can't concentrate and is affecting her work , Pt doesn't believe it, but she admits to being bored at work and knows she doesn't want to be there Derm Problem seen Dr Leon and burned several lesions 06/12/19 Subjective HISTORY OF PRESENT ILLNESS: Geraldine Weiss is a 63-y.o. female. HPI Lab work done last February showed elevated blood sugar. I urged her to watch her diet and get regular exercise. Since that time things have been very stressful at work. She is not exercising consistently and her weight has only dropped 2 pounds. She was asked to improve diet and exercise patterns to aid in medical management of this. Using Nexium for heartburn as needed. Having skin lesions destroyed with Dr. Leon, no malignancies detected. Past Medical History: Diagnosis Date Allergic Rhinitis 01/07/2008 Asthma 01/07/2008 Depressive Disorder 01/07/2008 Displacement of Cervical Intervertebral Disc 01/07/2008 Dysmenorrhea 01/07/2008 Dysmenorrhea 01/07/2008 GERD 01/07/2008 Ovarian Cyst - Left Ovary 01/07/2008 Plantar fascial fibromatosis 01/07/2008 Pneumonia With Pleural Effusion - 199401/07/2008 Postmenopausal Family History Problem Relation Age of Onset Multiple Sclerosis Brother SKIN CANCER Cancer Brother SKIN CANCER Current Outpatient Medications Medication Sig cetirizine (ZYRTEC ALLERGY) 10 MG Oral Tab Take 10 mg by mouth DAILY NEEDED. Esomeprazole (NEXIUM) 20 MG Oral CAPSULE DELAYED RELEASE Take 1 Cap by mouth DAILY NEEDED (for gerd). meclizine (ANTIVERT) 25 MG Oral Tab Take 1 Tab by mouth THREE TIMES DAILY NEEDED for dizziness/vertigo. metronidazole (METROGEL) 0.75 % Apply externally Gel Apply to nose daily as needed Multiple Vitamins-Calcium (DAILY VITAMINS FOR WOMEN) Oral Tab Take by mouth DAILY. No current facility-administered medications for this visit. Allergies Allergen Reactions Celebrex [Celecoxib] GI Reaction Motrin [Ibuprofen] GI UPSET Naproxen Sodium GI Reaction Social History Socioeconomic History Marital status: Spouse name: Not on file Number of children: Not on file Years of education: Not on file Highest education level: Not on file Occupational History Not on file Social Needs Financial resource strain: Not on file Food insecurity: Worry: Not on file Inability: Not on file Transportation needs: Medical: Not on file Non-medical: Not on file Tobacco Use Smoking status: Never Smoker Smokeless tobacco: Never Used Tobacco comment: parents were smokers Substance and Sexual Activity Alcohol use: Not on file Drug use: Not on file Sexual activity: Not on file Lifestyle Physical activity: Days per week: Not on file Minutes per session: Not on file Stress: Not on file Relationships Social connections: Talks on phone: Not on file Gets together: Not on file Attends yazidi service: Not on file Active member of club or organization: Not on file Attends meetings of clubs or organizations: Not on file Relationship status: Not on file Intimate partner violence: Fear of current or ex partner: Not on file Emotionally abused: Not on file Physically abused: Not on file Forced sexual activity: Not on file Other Topics Concern Not on file Social History Narrative Not on file Over the last 2 weeks, have you been feeling down, depressed, anxious, or hopeless?: 0 Over the past 2 weeks, have you felt little interest or pleasure in doing things ?: 0 REVIEW OF SYSTEMS: Review of Systems Constitutional: Positive for malaise/fatigue. Negative for weight loss. Eyes: Negative for blurred vision. Left eye with cataract, almost bad enough for surg. Respiratory: Positive for shortness of breath. Cardiovascular: Negative for chest pain. Orthopnea: urin microal. Gastrointestinal: Negative for abdominal pain. Genitourinary: Negative for frequency. Musculoskeletal: Positive for back pain and joint pain. Neurological: Negative for dizziness and headaches. Endo/Heme/Allergies: Negative for polydipsia. Psychiatric/Behavioral: Positive for depression. The patient is nervous/anxious. Objective PHYSICAL EXAM: VITALS: BP 122/68 | Pulse 60 | Ht 5' 2" (1.575 m) | Wt 241 lb (109.3 kg) | BMI 44.08 kg/m Body mass index is 44.08 kg/m. Physical Exam Alert, oriented, in no acute distress. Vitals as above. HEENT: Normocephalic, atraumatic. ADINA, EOMI. Mouth and ears unremarkable. Neck: No palpable lymphadenopathy in the submandibular, submental, anterior cervical, posterior cervical, or occipital chains, nor in the supraclavicular spaces. No JVD, thyromegaly. LUNGS: clear. HEART: Regular rate and rhythm. ABDOMEN: positive bowel sounds, soft, nontender, no hepatosplenomegaly, masses or bruits. EXTREMITIES: no cyanosis, clubbing, or edema. ASSESSMENT / IMPRESSION: ICD-9-CM ICD-10-CM 1. Fatigue, unspecified typerule out sleep apnea 780.79 R53.83 REFER TO SLEEP STUDY LAB REFER TO SLEEP MEDICINE SPECIALIST 2. High cholesterol- The patient is asked to improve diet and exercise patterns to aid in medical management of this. 272.0 E78.00 3. Type 2 diabetes mellitus without complication, without long-term current use of insulin (HCC)- The patient is also asked to make an attempt to improve diet and exercise patterns to aid in medical management of this. 250.00 E11.9 COMPREHENSIVE METABOLIC PANEL GLYCOHEMOGLOBIN A1C LIPID PROFILE MICROALBUMIN, RANDOM URINE W/ CREATININE Patient Instructions Continue same medicines Get labwork and sleep test at [facility] [place] We'll decide what else to do after that If all ok, follow up in 5 months Author: Hal Orozco MD 07/07/2019 12:28 documented in this encounter Plan of Treatment Date Type Specialty Care Team Description 12/09/2019 Office Visit Internal Medicine Hal Orozco MD [address] [place] [address] [phone] Name Type Priority Associated Diagnoses Order Schedule COMPREHENSIVE METABOLIC Lab Routine Type 2 diabetes Ordered: 07/07/2019 PANEL mellitus without complication, without long-term current use of insulin (HCC) GLYCOHEMOGLOBIN A1C Lab Routine Type 2 diabetes Ordered: 07/07/2019 mellitus without complication, without long-term current use of insulin (HCC) LIPID PROFILE Lab Routine Type 2 diabetes Ordered: 07/07/2019 mellitus without complication, without long-term current use of insulin ([facility]) MICROALBUMIN, RANDOM URINE Lab Routine Type 2 diabetes Ordered: 07/07/2019 W/ CREATININE mellitus without complication, without long-term current use of insulin ([facility]) Name Type Priority Associated Diagnoses Order Schedule REFER TO SLEEP STUDY Referral Routine Fatigue, unspecified Expected: LAB type 07/07/2019, Expires: 07/07/2020 REFER TO SLEEP MEDICINE Referral Routine Fatigue, unspecified Expected: SPECIALIST type 07/08/2019, Expires: 07/08/2020 Health Maintenance Due Date Last Done Comments ZOSTER IMMUNIZATION SERIES 2005 (1 of 2) MAMMOGRAM (SCREENING) 12/17/2018 12/17/2017, 11/30/2016, 10/20/2013, Additional history exists INFLUENZA VACCINE (#1) 2019 09/13/2017, 07/23/2001 PAP SMEAR 01/24/2020 01/23/2017, 02/15/2012, 10/18/2008, Additional history exists DIABETES SCREENING 03/10/2020 03/10/2019, 04/11/2017, 01/28/2017, Additional history exists DEPRESSION SCREENING 07/07/2020 07/07/2019, 06/12/2018 COLONOSCOPY SCREENING 04/03/2022 04/03/2017, 04/03/2017, 09/25/2011 (Previously completed), Additional history exists LIPID DISORDER SCREENING 02/20/2024 02/19/2019, 07/25/2018, 01/28/2017, Additional history exists HPV IMMUNIZATION SERIES Aged Out No longer eligible based on patient's age to complete this topic MENINGOCOCCAL VACCINE IMM Aged Out No longer eligible based on patient's age to complete this topic PNEUMOCOCCAL 0-64 YRS Aged Out No longer eligible based on patient's age to complete this topic documented as of this encounter Goals Goal Patient Goal Associated Recent Patient-Stated? Author Type Problems Progress Depression Depression 3 (06/12/2018 No Pam, screen (PHQ-9) 3:53 PM EDT) MD Hal total score < 5 Note: This is an individualized treatment (depression) goal for Geraldine Weiss: Displayed above is your goal for a depression screening (PHQ-9) score that would indicate good control of your depression. Keep a regular sleep schedule Lifestyle No Hal Orozco MD Note: This is an individualized lifestyle goal for Geraldine Weiss: Please maintain a regular sleep schedule. This may help with some symptoms of depression. Take all prescribed medications as directed Self-management Hal Skinner MD Note: This is an individualized self-management goal for Geraldine Weiss: Please take all prescribed medications as directed. 1. Do not skip doses. If you cannot afford your medications, talk with your doctor. 2. Use a pill reminder system such as a pill box if needed. Your pharmacist can help you with this. 3. Contact your Pharmacy 5 days before your medication runs out. If you cannot take your medications for any reasons, talk with your doctor. 4. Please bring all of your medication bottles and inhalers (or a list of all your medications/inhalers) with you to every visit. Potential barriers to meeting all of your care plan goals will continue to be addressed on an ongoing basis. documented as of this encounter Results Not on filedocumented in this encounter Visit Diagnoses Diagnosis Fatigue, unspecified type - Primary High cholesterol Pure hypercholesterolemia Type 2 diabetes mellitus without complication, without long-term current use of insulin (HCC) documented in this encounter Insurance Payer Benefit Plan / Subscriber ID Effective Dates Phone Address Type Group POLA HOLLOWAY xxxxxxxxxxxx 2014-Present Pola AR[employer] PPO Guarantor Name Account Type Relation to Date of Phone Billing Address Patient Geraldine Weiss Personal/Famil 1955 [address] [phone] [place], [place] (Work) [address] documented as of this encounter
[2019-07-29] MEDS ORDERED: Acetaminophen TAB* 325 MG PO ONE (14:02)
[2019-07-29 14:58] VITALS: BP 147/79
--- NOTE | 2019-07-29 16:42 | ED ---
Adult Trauma - HPI Summary HPI Summary: Patient is a 63-year-old otherwise healthy female who presents to the ED after a fall. She was walking back from her break while at work when she feels like her leg locked and tripped and fell. She is endorsing pain to her left elbow, left knee as well as her right buttocks. She states she was able to amply following. Denies hitting her head or LOC. Denies any weakness or dizziness just prior to the fall. She denies limitations with ROM. Denies any obvious bruising or bleeding, abrasions,etc. She is endorsing pain at a 5/10. She states her blood pressure was very high on arrival, at systolic 160. Pt states she is never this high. - History of Current Complaint Chief Complaint: EDFall Stated Complaint: LT ELBOW / LT KNEE INJ FROM FALL PER PT Time Seen by Provider: 07/29/19 12:36 Hx Obtained From: Patient Hx Last Menstrual Period: n/a ?: No Ambulatory at the Scene: No Loss of Consciousness: no loss of consciousness Onset/Duration: Started Minutes Ago Onset of Pain: Minutes Onset Severity: Moderate Current Severity: Mild Pain Intensity: 3 Pain Scale Used: 0-10 Numeric Location: Other - left elbow and left knee, right buttocks Character: Aching Aggravating Factor(s): Nothing Alleviating Factor(s): Nothing Associated Signs & Symptoms: Positive: Negative - Allergy/Home Medications Allergies/Adverse Reactions: Allergies Allergy/AdvReac Type Severity Reaction Status Date / Time NSAIDS (Non-Steroidal Allergy Abdominal Verified 07/29/19 12:34 Anti-Inflamma Pain PMH/Surg Hx/FS Hx/Imm Hx Previously Healthy: Yes Endocrine/Hematology History: Denies: Hx Diabetes, Hx Thyroid Disease Cardiovascular History: Denies: Hx Hypertension - usually normal til today, Hx Pacemaker/ICD, Other Cardiovascular Problems/Disorders Respiratory History: Reports: Hx Asthma - SLIGHT FROM BRONCHITIS Denies: Other Respiratory Problems/Disorders GI History: Reports: Hx Gastroesophageal Reflux Disease - OCCASIONAL Denies: Hx Ulcer - DENIES History: Denies: Hx Renal Disease Musculoskeletal History: Reports: Other Musculoskeletal History - DDD NECK Sensory History: Reports: Hx Contacts or Glasses - GLASSES Denies: Hx Deafness, Hx Hearing Aid Opthamlomology History: Reports: Hx Contacts or Glasses - GLASSES Neurological History: Denies: Other Neuro Impairments/Disorders Psychiatric History: Denies: Hx Panic Disorder - Surgical History Surgery Procedure, Year, and Place: gallbladder, 1996, [facility]. 2 c-sections, 1975 , 1977. ANKLE FX, 2015, LEFT ANKLE, [facility]. TONSILECTOMY. right rotator cuff Hx Anesthesia Reactions: No - Immunization History Date of Tetanus Vaccine: Unk Date of Influenza Vaccine: None Hx Pertussis Vaccination: No Immunizations Up to Date: Yes Infectious Disease History: No Infectious Disease History: Denies: Hx Clostridium Difficile, Hx Hepatitis, Hx Human Immunodeficiency Virus (HIV), Hx of Known/Suspected MRSA, Hx Shingles, Hx Tuberculosis, Hx Known/ Suspected VRE, Hx Known/Suspected VRSA, History Other Infectious Disease, Traveled Outside the [place] in Last 30 Days - Family History Known Family History: Positive: Hypertension, Respiratory Disease, Non- Contributory Family History: PROSTATE CANCER - DAD - Social History Occupation: Employed Full-time Lives: With Family Alcohol Use: Occasionally Alcohol Amount: 1 PER WEEK Hx Substance Use: No Substance Use Type: Reports: None Hx Tobacco Use: No Smoking Status (MU): Never Smoked Tobacco Have You Smoked in the Last Year: No Review of Systems Negative: Fever, Chills, Fatigue, Skin Diaphoresis Negative: Palpitations, Chest Pain Negative: Shortness Of Breath, Cough Negative: Abdominal Pain, Vomiting, Diarrhea, Nausea Genitourinary: Negative Positive: no symptoms reported, see HPI Negative: Myalgia Neurological: Negative All Other Systems Reviewed And Are Negative: Yes Physical Exam Triage Information Reviewed: Yes Vital Signs On Initial Exam: Initial Vitals Temp Pulse Resp BP Pulse Ox 97.8 F 67 14 168/81 96 07/29/19 12:30 07/29/19 12:30 07/29/19 12:30 07/29/19 12:30 07/29/19 12:30 Vital Signs Reviewed: Yes Appearance: Positive: Well-Appearing, Well-Nourished Skin: Positive: Warm, Skin Color Reflects Adequate Perfusion Head/Face: Positive: Normal Head/Face Inspection Eyes: Positive: EOMI, Conjunctiva Clear Neck: Positive: No Lymphadenopathy Respiratory/Lung Sounds: Positive: Clear to Auscultation, Breath Sounds Present Cardiovascular: Positive: RRR, Pulses are Symmetrical in both Upper and Lower Extremities Musculoskeletal: Positive: Strength/ROM Intact Neurological: Positive: Facial Symmetry Psychiatric: Positive: Affect/Mood Appropriate Procedures - Sedation Patient Received Moderate/Deep Sedation with Procedure: No Diagnostics - Vital Signs Vital Signs Temp Pulse Resp BP Pulse Ox 07/29/19 14:56 99 F 56 16 147/79 97 07/29/19 12:30 97.8 F 67 14 168/81 96 - Laboratory Lab Statement: Any lab studies that have been ordered have been reviewed, and results considered in the medical decision making process. Adult Trauma Course/Dx - Course Course Of Treatment: This patient is evaluated for left elbow and left knee pain as well as right buttocks pain. Patient states her pain is currently rated a 3/10. Able to move all extremities well. Denies any other symptoms. Ambulating. No ecchymosis or signs of trauma throughout. Pt given tylenol. As she has no limitations with ROM and ambulating well, pt will be dc'd home with dx of trauma/fall. - Diagnoses Provider Diagnoses: Fall Discharge ED - Sign-Out/Discharge Documenting (check all that apply): Patient Departure - Discharge Plan Condition: Stable Disposition: HOME Patient Education Materials: Contusion in Adults (ED) Referrals: Hal Orozco MD [Primary Care Provider] - Additional Instructions: Please follow up with PCP as needed Moist heat to the area of the buttocks will help Tylenol 650mg three times daily as needed for pain - Billing Disposition and Condition Condition: STABLE Disposition: Home - Attestation Statements Provider Attestation: I was available for consult. This patient was seen by the SUZANNE. The patient was not presented to, seen by, or examined by me. Jaime Connelly MD
== END 2019-07-29 13:23 | disposition home or self-care (01) ==
LOC: ED 12:28
DX: M25.522 Pain in left elbow (principal); M25.562 Pain in left knee; M79.10 Myalgia, unspecified site; W01.0XXA Fall on same level from slipping, tripping and stumbling without subsequent striking against object, initial encounter; Y92.89 Other specified places as the place of occurrence of the external cause; Y99.0 Civilian activity done for income or pay; J45.909 Unspecified asthma, uncomplicated; K21.9 Gastro-esophageal reflux disease without esophagitis; Z90.49 Acquired absence of other specified parts of digestive tract; Z88.6 Allergy status to analgesic agent
CPT/HCPCS: 99282; A9270-GY

== ENCOUNTER 2019-08-24 16:48 | Emergency (ER) | payer BC, OTHER ==
--- NOTE | 2019-08-24 18:49 | ED ---
Upper Extremity Pain - HPI Summary HPI Summary: Patient complains of persistent left shoulder pain status post mechanical fall 07/29. Patient states he fell onto her elbow but pain is in the left shoulder. Patient states she has applied ice, heat, ibuprofen regularly without improvement. Denies any other symptoms, illness pain or injury. - History of Current Complaint Chief Complaint: EDExtremityUpper Stated Complaint: LT SHOULDER PAIN PER PT Time Seen by Provider: 08/24/19 17:13 Hx Obtained From: Patient Hx Last Menstrual Period: n/a Mechanism Of Injury: Fall From A Standing Position Onset/Duration: Started Weeks Ago Timing: Constant Severity Initially: Mild Severity Currently: Moderate Pain Location: Shoulder Character: Dull, Aching, Throbbing Aggravating Factor(s): Movement Alleviating Factor(s): Nothing Associated Signs & Symptoms: Positive: Negative - Allergies/Home Medications Allergies/Adverse Reactions: Allergies Allergy/AdvReac Type Severity Reaction Status Date / Time NSAIDS (Non-Steroidal Allergy Abdominal Verified 08/24/19 16:59 Anti-Inflamma Pain PMH/Surg Hx/FS Hx/Imm Hx Endocrine/Hematology History: Denies: Hx Diabetes, Hx Thyroid Disease Cardiovascular History: Denies: Hx Hypertension - usually normal til today, Hx Pacemaker/ICD, Other Cardiovascular Problems/Disorders Respiratory History: Reports: Hx Asthma - SLIGHT FROM BRONCHITIS Denies: Other Respiratory Problems/Disorders GI History: Reports: Hx Gastroesophageal Reflux Disease - OCCASIONAL Denies: Hx Ulcer - DENIES History: Denies: Hx Renal Disease Musculoskeletal History: Reports: Other Musculoskeletal History - DDD NECK Sensory History: Reports: Hx Contacts or Glasses - GLASSES Denies: Hx Deafness, Hx Hearing Aid Opthamlomology History: Reports: Hx Contacts or Glasses - GLASSES EENT History: Denies: Hx Deafness Neurological History: Denies: Other Neuro Impairments/Disorders Psychiatric History: Denies: Hx Panic Disorder - Surgical History Surgery Procedure, Year, and Place: gallbladder, 1995, [facility]. 2 c-sections, 1975 , 1977. ANKLE FX, 2015, LEFT ANKLE, [facility]. TONSILECTOMY. right rotator cuff Hx Anesthesia Reactions: No - Immunization History Date of Tetanus Vaccine: Unk Date of Influenza Vaccine: None Infectious Disease History: No Infectious Disease History: Denies: Hx Clostridium Difficile, Hx Hepatitis, Hx Human Immunodeficiency Virus (HIV), Hx of Known/Suspected MRSA, Hx Shingles, Hx Tuberculosis, Hx Known/ Suspected VRE, Hx Known/Suspected VRSA, History Other Infectious Disease, Traveled Outside the [place] in Last 30 Days - Family History Known Family History: Positive: Hypertension, Respiratory Disease, Non- Contributory Family History: PROSTATE CANCER - DAD - Social History Alcohol Use: Occasionally Alcohol Amount: 1 PER WEEK Hx Substance Use: No Substance Use Type: Reports: None Hx Tobacco Use: No Smoking Status (MU): Never Smoked Tobacco Have You Smoked in the Last Year: No Review of Systems Constitutional: Negative Eyes: Negative ENT: Negative Cardiovascular: Negative Respiratory: Negative Gastrointestinal: Negative Genitourinary: Negative Musculoskeletal: Other Skin: Negative Neurological: Negative Psychological: Normal All Other Systems Reviewed And Are Negative: Yes Physical Exam - Summary Physical Exam Summary: No ecchymosis, erythema, deformity, swelling noted to left upper extremity. Pain with abduction of left arm above shoulder level, however patient is able to complete the motion. PMS intact distally. Full range of motion at left wrist, left elbow and left shoulder. Triage Information Reviewed: Yes Vital Signs On Initial Exam: Initial Vitals Temp Pulse Resp BP Pulse Ox 97.5 F 63 18 95/67 96 08/24/19 16:53 08/24/19 16:53 08/24/19 16:53 08/24/19 16:53 08/24/19 16:53 Vital Signs Reviewed: Yes Appearance: Positive: Well-Appearing Skin: Positive: Warm Head/Face: Positive: Normal Head/Face Inspection Eyes: Positive: Normal ENT: Positive: Normal ENT inspection Dental: Negative: Dental Fracture @, Bleeding Neck: Positive: Supple Respiratory/Lung Sounds: Positive: Clear to Auscultation Cardiovascular: Positive: Normal Abdomen Description: Positive: Nontender Musculoskeletal: Positive: Normal Neurological: Positive: Normal Psychiatric: Positive: Normal AVPU Assessment: Alert - Conrad Coma Scale Best Eye Response: 4 - Spontaneous Best Motor Response: 6 - Obeys Commands Best Verbal Response: 5 - Oriented Coma Scale Total: 15 Procedures - Sedation Patient Received Moderate/Deep Sedation with Procedure: No Diagnostics - Vital Signs Vital Signs Temp Pulse Resp BP Pulse Ox 08/24/19 16:53 97.5 F 63 18 95/67 96 - Laboratory Lab Statement: Any lab studies that have been ordered have been reviewed, and results considered in the medical decision making process. Course/Dx - Course Course Of Treatment: Patient complains of persistent left shoulder pain status post mechanical fall 07/29. Patient states he fell onto her elbow but pain is in the left shoulder. Patient states she has applied ice, heat, ibuprofen regularly without improvement. Denies any other symptoms, illness pain or injury. Vital signs within normal limits. X-ray left shoulder and left clavicle negative. Patient advised to follow-up with orthopedics for further evaluation. - Diagnoses Provider Diagnoses: Shoulder pain, left Discharge ED - Sign-Out/Discharge Documenting (check all that apply): Patient Departure - Discharge Plan Condition: Stable Disposition: HOME Patient Education Materials: Shoulder Pain (ED) Forms: *Work Release Referrals: Hal Oorzco MD [Primary Care Provider] - Efrain Mcclure MD [Medical Doctor] - Additional Instructions: Call the clinic of Orthopedics Dr. Raines tomorrow morning to set up an appointment for further evaluation of left shoulder pain. Continue to ice left shoulder and take Tylenol as directed for pain. - Billing Disposition and Condition Condition: STABLE Disposition: Home
[2019-08-24 19:06] VITALS: BP 113/70
== END 2019-08-24 19:05 | disposition home or self-care (01) ==
LOC: ED 16:48
DX: M25.512 Pain in left shoulder (principal); Z88.6 Allergy status to analgesic agent
CPT/HCPCS: 99282

== ENCOUNTER 2019-12-11 09:09 | Day surgery (SDC) | payer BC, OTHER ==
[~2019-12-11 09:09] MED LIST: Buffered Lidocaine 1% SYRIN* 1 ML/SYRINGE INTRADERM ONE; DiMENhydriNATE IV* 50 MG/ML VIAL IV PUSH PRN; Lactated Ringers 1000 ML Bag* 1,000 ML IV SCH; Naloxone* 0.4 MG/ML 1 ML VIAL IV PRN; Ondansetron INJ* 2 MG/ML VIAL IV PRN
[2019-12-11] MEDS ORDERED: Buffered Lidocaine 1% SYRIN* 1 ML/SYRINGE INTRADERM ONE (09:33)
[2019-12-11] MEDS ORDERED: ceFAZolin 2 GM in NS PREMIX(*) 2 GM/100 ML BAG IVPB ONE (09:33)
[2019-12-11] MEDS ORDERED: ROPIVACAINE 5 MG/ML 30 ML BTL (0.5%) ONE (10:48)
[2019-12-11] MEDS ORDERED: EPINEPHRINE 1 MG/ML 1 ML VIAL ONE (12:22)
[2019-12-11] MEDS ORDERED: Bupivacaine 0.5% W/EPI SDV* 30 ML VIAL ONE (12:22)
[2019-12-11] MEDS ORDERED: Bupivacaine 0.5% SDV PF* 30ML VIAL ONE (12:29)
[2019-12-11] MEDS ORDERED: fentaNYL* 50 MCG/ML 2 ML VIAL (100 MCG VIAL) ONE ×2 (12:36→13:45)
[2019-12-11] MEDS ORDERED: Midazolam* 1 MG/ML 2 ML VIAL (2 MG) ONE (12:36)
[2019-12-11] MEDS ORDERED: Famotidine IV* 10 MG/ML 2 ML (20 mg) ONE (12:37)
[2019-12-11] MEDS ORDERED: Lidocaine 2% PF * 5 ML VIAL ONE (12:55)
[2019-12-11] MEDS ORDERED: Rocuronium* 10 MG/ML VIAL ONE (13:02)
[2019-12-11] MEDS ORDERED: Ondansetron INJ* 2 MG/ML VIAL ONE (13:31)
[2019-12-11] MEDS ORDERED: Dexamethasone IV* 4 MG/ML 1 ML (4 MG) ONE ×2 (13:31)
[2019-12-11] MEDS ORDERED: Ketorolac INJ* 30 MG/ML 1 ML VIAL ONE (13:31)
[2019-12-11] MEDS ORDERED: Succinylcholine* 20 MG/ML 10 ML VIAL ONE (13:31)
[2019-12-11] MEDS ORDERED: Propofol* 10 MG/ML 20 ML BTL ONE (13:31)
[2019-12-11] MEDS ORDERED: Dexmedetomidine* 200 MCG/2 ML 2 ML VIAL ONE (13:34)
[2019-12-11] MEDS ORDERED: HYDROmorphone INJ1* 1 MG/ML SYRINGE ONE (15:21)
[2019-12-11] MEDS: HYDROmorphone INJ1* 1 MG/ML SYRINGE IV PRN ×5 (15:21→15:54)
[2019-12-11] MEDS ORDERED: oxyCODONE/Acetamin 5/325 MG* TAB ONE ×2 (16:49→18:00)
[2019-12-11 19:06] VITALS: BP 131/77
[2019-12-11] MEDS ORDERED: Scopolamine 1.5 mg* PATCH ONE (19:27)
[2019-12-11] MEDS ORDERED: Ondansetron ODT TAB* 4 MG ONE (19:27)
[2019-12-11] MEDS ORDERED: Ondansetron ODT TAB* 4 MG SL ONE (19:27)
[2019-12-11] MEDS ORDERED: Scopolamine 1.5 mg* PATCH TRANSDERM SCH (20:00)
[2019-12-11] MEDS ORDERED: Scopolamine PATCH Remove* 1 NOTE MISC PATCH OFF SCH (20:00)
--- NOTE | 2019-12-13 22:58 | OP ---
DATE OF OPERATION: 12/11/19 - [facility] DATE OF : 55 SURGEON: Ranjit Painting MD CONTINUUM OF CARE MANAGER: CHAZ Leon. A physician blacksmith assistant was required for the length of the procedure for assistance with patient positioning, retraction, instrumentation, and closure. ANESTHESIOLOGIST: Dr. Thang Saeed. ANESTHESIA: General anesthesia, regional interscalene block anesthesia, local anesthesia using 30 cc of Marcaine 0.5% with epinephrine. PRE-OP DIAGNOSES: 1. Left shoulder supraspinatus partial-thickness tear. 2. Left shoulder subacromial impingement and bursitis. 3. Left shoulder acromioclavicular joint osteoarthritis. 4. Possible left shoulder biceps tendinosis. POST-OP DIAGNOSES: 1. Left shoulder partial-thickness undersurface supraspinatus tear, low grade. 2. Left shoulder subacromial impingement and bursitis. 3. Left shoulder acromioclavicular joint osteoarthritis. 4. Left shoulder superior labrum tear and biceps tendinosis. OPERATIVE PROCEDURE: 1. Left shoulder arthroscopic rotator cuff tendon repair with REGENETEN biologic patch. 2. Left shoulder arthroscopic subacromial decompression. 3. Left shoulder arthroscopic distal clavicle resection. 4. Left shoulder arthroscopic debridement including release of long-head biceps tendon, debridement of superior labrum. ANTIBIOTICS: Ancef 2 g IV. IV FLUIDS: See anesthesia note. [id number] TIME: 55 minutes. SPECIMENS: None. IMPLANTS: [employer] REGENETEN biologic patch, size large. COMPLICATIONS: None. ESTIMATED BLOOD LOSS: Minimal. INDICATIONS FOR PROCEDURE: The patient is a 64-year-old woman, right-hand dominant, who fell on 07/29/19, and developed left shoulder pain which did not respond sufficiently to nonoperative management. The patient opted for surgery. Discussed risks and potential complications of surgery. DESCRIPTION OF PROCEDURE: In the preoperative holding, the patient signed a written consent. Operative extremity was marked in the preoperative holding. Anesthesiologist performed a regional interscalene block in the preoperative holding. The patient was taken back to the operating room and placed supine on the operating room table, sedated and intubated. I called a mini time-out and assessed and examination under anesthesia of the patient's left shoulder. The patient had full passive range of motion of that left shoulder. Forward flexion approximately 175 degrees, external rotation 90 , and internal rotation 70 degrees with the shoulder abducted 90 degrees. Certainly no manipulation required. The patient was placed in a lateral decubitus position. Axillary roll placed. All bony prominences padded, de la cruz-bag hardened. Longitudinal traction with 15 pounds with the appropriate amount of shoulder forward flexion and abduction. Left shoulder was prepped and draped. Formal surgical time-out was performed. I placed a spinal needle into the glenohumeral joint from posterior. I infused 30 cc of normal saline. I then established a posterior glenohumeral joint portal using standard technique. I commenced my diagnostic arthroscopy. The patient has no loose bodies present. The patient had significant erythema about the biceps tendon and superior labrum. The undersurface of the supraspinatus revealed just several mm of exposed foot print indicating a low- grade partial thickness undersided tear of supraspinatus. I established an anterior glenohumeral joint portal under direct visualization. Due to the significant hyperemia and thickening of the biceps long-head tendon along with the superior labrum tear, I decided to release the biceps. I brought in a large scissors from anterior and cut the biceps near its origin. I used the arthroscopic shaver to smooth out the superior labrum with that arthroscopic shaver. I also debrided some tissue in the rotator cuff interval with the arthroscopic shaver. Removed instruments and fluids from the glenohumeral joint and moved to the subacromial space. Encountered bursitic tissue in the subacromial space after making anterior and posterior portals. I made lateral and posterolateral portals under direct visualization. Debrided bursitic tissue with arthroscopic shaver. I then visualized the rotator cuff. There was no bursal-sided tearing of the rotator cuff. There was some hyperemia of it. I had not marked an area of weakness of the cuff's undersurface as that partial thickness tearing was quite wide along the entirety of the supraspinatus visualized on the undersurface. I probed the supraspinatus and the rest of the rotator cuff and saw no bursal sided tear. I even took a spinal needle and placed it through the supraspinatus while visualizing its bursal side. I did this to feel the thickness by touch and the tendon felt duarte as I advanced the spinal needle through it. Convinced that there was no high-grade injury to the rotator cuff, I was fine with a biologic patch rather than a suture anchor repair. Proceeded to subacromial decompression. I flattened out the undersurface of the acromion using an arthroscopic meme. This smoothed out the undersurface of the acromion nicely. I next brought in a large patch. I used PLLA betty to staple it in place. I confirmed the stability of the patch with movement of the shoulder. I next moved to the AC joint. I removed 8 mm of the distal end of the clavicle using an arthroscopic meme. I again confirmed the stability of the patch that had been placed on the rotator cuff. Removed instruments and fluid from subacromial space. Closed skin incisions with [id number] and twelve stitches using nylon 3-0 suture. Xeroform, 4x4 , ABDs, foam tape, sling and abduction pillow. DISPOSITION: Wound care instructions as provided. The patient will receive Percocet as needed for pain control. She will start physical therapy immediately according to the [facility] biologic [facility] protocol. She will see me in 10 to 14 days in clinic. [id number]/[facility] #: [id number] JACKY
== END 2019-12-11 20:21 | disposition home or self-care (01) ==
LOC: OR 09:09
PROVIDERS: ATTEND Orthopaedic Surgery
DX: S46.012A Strain of muscle(s) and tendon(s) of the rotator cuff of left shoulder, initial encounter (principal); S43.492A Other sprain of left shoulder joint, initial encounter; M75.42 Impingement syndrome of left shoulder; M75.52 Bursitis of left shoulder; M19.012 Primary osteoarthritis, left shoulder; M75.22 Bicipital tendinitis, left shoulder; W19.XXXA Unspecified fall, initial encounter; G89.18 Other acute postprocedural pain; Y92.9 Unspecified place or not applicable; E11.9 Type 2 diabetes mellitus without complications; I10 Essential (primary) hypertension; G47.33 Obstructive sleep apnea (adult) (pediatric); K21.9 Gastro-esophageal reflux disease without esophagitis; Z68.42 Body mass index [BMI] 45.0-49.9, adult
CPT/HCPCS: A9270-GY; C1713; J0330; J0690; J1100; J1170; J1885; J2250; J2405; J2704; J2795; J3010; J3490

== ENCOUNTER 2019-12-16 19:51 | Emergency (ER) | payer BC, OTHER ==
--- OUTSIDE RECORDS SUMMARY | 2019-12-16 19:59 | XMS REPORT | Continuity of Care Document ---
:1955 External Reference #:[id number] Author Name Kesha Mcclelland NP (transmitted by agent of provider Rosanna Baltazar) Address [address] [facility], [address] [address] Care Team Providers Name Role Phone Hal Orozco MD - Internal Medicine Care Team Information Customer Solutions Supervisor Problems Active Problems Provider Date Strain of rotator cuff capsule [place] Mcqueen MD Onset: 07/18/2015 Full thickness rotator cuff tear Venice Mcqueen MD Onset: 08/15/2015 Wrist joint pain Venice Mcqueen MD Onset: 05/01/2016 Social History Type Date Description Comments Sex Unknown Tobacco Use Start: Unknown Never Smoked Cigarettes ETOH Use Occasionally consumes alcohol Recreational Drug Use Denies Drug Use Tobacco Use Start: Unknown Patient has never smoked Smoking Status Reviewed: 11/27/19 Patient has never smoked Exercise Type/Frequency Exercises sporadically Allergies, Adverse Reactions, Alerts Active Allergies Reaction Severity Comments Date Motrin stomach distress 02/02/2009 Naproxen 06/08/2014 Medications Active Medications SIG Qnty Indications Ordering Provider Date Vanna Allergy 1 by mouth every Unknown 180mg day Tablets Omeprazole 1 by mouth every Unknown 20mg Capsules DR day Medications Administered in Office Medication SIG Qnty Indications Ordering Provider Date Depomedrol 40MG Ranjit Painting MD 08/27/2019 Injection Depomedrol 40MG Ranjit Painting MD 08/27/2019 Injection Immunizations Description No Information Available Vital Signs Date Vital Result Comment 11/27/2019 8:12am Height 62 inches 5'2" Weight 250.00 lb Heart Rate 76 /min BP Systolic Sitting 124 mmHg BP Diastolic Sitting 60 mmHg O2 % BldC Oximetry 95 % BMI (Body Mass Index) 45.7 kg/m2 10/29/2019 1:42pm Height 62 inches 5'2" Weight 241.00 lb BP Systolic 126 mmHg BP Diastolic 83 mmHg Respiratory Rate 16 /min Pain Level 3 BMI (Body Mass Index) 44.1 kg/m2 Results Description No Information Available Procedures Date Code Description Status 10/20/2019 57555 Sleep Study Unattended,HRT Rate,Oxygen Sat,Resp Completed Effort/Airflow 08/27/2019 39655 Inject/Drain Joint/Bursa Major W/O US Completed 09/17/2006 02293621 Colonoscopy Completed Medical Devices Description No Information Available Encounters Type Date Location Provider Dx Diagnosis Office Visit 10/29/2019 [facility] Ranjit Moore S46.012D Strain of 1:45p at [facility] [facility]/tend the rotator cuff of left shoulder, subs M75.52 Bursitis of left shoulder Office Visit 10/15/2019 3:00p [facility] Zarina Vásquez, R06.83 [facility] R53.83 Other fatigue Office Visit 10/12/2019 2:15p [facility] S46.012D Strain of Orthopedics at [facility]/tend the [place] rotator cuff of left shoulder, subs M75.52 Bursitis of left shoulder Office Visit 08/27/2019 3:32p [facility] S46.012A Strain of Orthopedics at [facility] [facility]/tend the [place] rotator cuff of left shoulder, init M75.52 Bursitis of left shoulder Assessments Date Code Description Provider 11/27/2019 G47.33 Obstructive sleep apnea (adult) Kesha Mcclelland NP (pediatric) 11/27/2019 R53.83 Other fatigue Kesha Mcclelland NP 11/11/2019 S46.012D Strain of muscle(s) and tendon(s) of the Ranjit Painting MD rotator cuff of left shoulder, subsequent encounter 10/29/2019 S46.012D Strain of muscle(s) and tendon(s) of the Ranjit Painting MD rotator cuff of left shoulder, subsequent encounter 10/29/2019 M75.52 Bursitis of left shoulder Ranjit Painting MD 10/20/2019 G47.33 Obstructive sleep apnea (adult) Zarina Vásquez MD (pediatric) 10/15/2019 R06.83 Snoring Zarina Vásquez MD 10/15/2019 R53.83 Other fatigue Zarina Vásquez MD 10/12/2019 S46.012D Strain of muscle(s) and tendon(s) of the Ranjit Painting MD rotator cuff of left shoulder, subsequent encounter 10/12/2019 M75.52 Bursitis of left shoulder Ranjit Painting MD 08/27/2019 S46.012A Strain of muscle(s) and tendon(s) of the Ranjit Painting MD rotator cuff of left shoulder, initial encounter 08/27/2019 M75.52 Bursitis of left shoulder Ranjit Painting MD 08/27/2019 S46.012A Strain of muscle(s) and tendon(s) of the Ranjit Painting MD rotator cuff of left shoulder, initial encounter 08/27/2019 M75.52 Bursitis of left shoulder Ranjit Painting MD 08/27/2019 M75.52 Bursitis of left shoulder Ranjit Painting MD 08/04/2019 S50.02xD Contusion of left elbow, subsequent Rony Hook MD encounter 08/04/2019 S80.02xD Contusion of left knee, subsequent Rony Hook MD encounter 08/04/2019 W19.xxxA Unspecified fall, initial encounter Rony Hook MD 08/04/2019 Z04.2 Encounter for examination and observation Rony Hook MD following work accident Plan of Treatment Future Appointment(s):01/26/2020 11:00 am - Kesha Mcclelland NP at [facility]12/11/2019 11:15 am - CHAZ Leon at [facility] at Risfgu7112/11/2019 11:15 am - Ranjit Painting MD at [facility] at Nqctfw6812/07/2019 3:15 pm - Ranjit Painting MD at [facility] at Vyrcmb8911/27/2019 - Kesha Mcclelland NPG47.33 Obstructive sleep apnea (adult) (pediatric)Follow up:2 monthsRecommendations: Keep up the good work with your CPAP. Remember to bring your machine when you [facility]. If you have difficulty with your equipment , or need to replace your mask or hoses, please contact your homecare agency, [employer] . If you have any further questions, please call the Sleep Disorder Center at [phone] If you have any sleepiness while driving you MUST avoid operating a vehicle or machinery. If you feel tired while driving trap puller and take a nap or switch drivers. If you know you are sleepy and need to go somewhere, arrange for a ride or usepublic transportation. It is very important to not risk your safety or the safety of others.R53.83 Other fatigue Functional Status Description No Information Available Mental Status Description No Information Available Referrals Description No Information Available
--- OUTSIDE RECORDS SUMMARY | 2019-12-16 19:59 | XMS REPORT | Continuity of Care Document ---
:1955 External Reference #:[id number] Author Name Ranjit Painting MD (transmitted by agent of provider Lilian Hanson) Address [address] [place] [address] Care Team Providers Name Role Phone Hal Orozco MD - Internal Medicine Care Team Information Video Production Intern [phone] Problems Active Problems Provider Date Strain of [...] Available Procedures Date Code Description Status 10/20/2019 21796 Sleep Study Unattended,HRT Rate,Oxygen Sat,Resp Completed Effort/Airflow 08/27/2019 32293 Inject/Drain Joint/Bursa Major W/O US Completed 09/17/2006 75500330 Colonoscopy Completed Medical Devices Description No Information Available Encounters Type Date Location Provider Dx Diagnosis Office Visit 10/29/2019 [facility] Ranjit Moore S46.012D Strain of 1:45p at [facility] [facility]/tend the rotator cuff of left shoulder, subs M75.52 Bursitis of left shoulder Office Visit 10/15/2019 3:00p [facility] Zarina Vásquez, R06.83 [facility] R53.83 Other fatigue Office Visit 10/12/2019 2:15p [facility] S46.012D Strain of Orthopedics at [facility]/tend the [place] rotator cuff of left shoulder, subs M75.52 Bursitis of left shoulder Office Visit 08/27/2019 3:32p [facility] S46.012A Strain of Orthopedics at [facility] [facility]/tend the [place] rotator cuff of left shoulder, init M75.52 [...] Mcclelland NP at [facility]12/11/2019 11:15 am - CHAZ Leon at [facility] at Bgniad7112/11/2019 11:15 am - Ranjit Painting MD at [facility] at Cgbbns9912/07/2019 3:15 pm - Ranjit Painting MD at [facility] at Plsqyo5111/27/2019 - Kesha Mcclelland NPG47.33 Obstructive sleep apnea (adult) (pediatric)Follow up:2 monthsRecommendations: Keep up the good work with your CPAP. Remember to bring your machine when you go to the [facility]. If you have difficulty with your equipment , or need to replace your mask or hoses, please contact your homecare agency, [facility] . If you have any further questions, please call the Sleep Disorder Center at [phone] If you have any sleepiness while driving you MUST avoid operating a vehicle or machinery. If you feel tired while driving hand assembler for puller over and take a nap or switch drivers. [...]
--- OUTSIDE RECORDS SUMMARY | 2019-12-16 19:59 | XMS REPORT | Summary of Care ---
:1955 Author Organization [facility] Address [address] [place] [address] Care Team Providers Name Role Phone Trae Orozco Primary Care Provider Reason for Visit Reason Comments Pre-Op Exam left shoulder arthroscopic decompression on 12/11/19 at [facility] [place] Painting; Labs Only last done 11/17 at [facility]; need EKG done. Encounter Details Date Type Department Care Team Description 11/24/2019 Office Visit [place] [facility] Trae Orozco, Traumatic incomplete tear of left rotator cuff, initial encounter (Primary Dx); Medicine MD Type 2 diabetes mellitus without complication, without long-term current use of insulin ([facility]); [address] [facility] Arthritis of left acromioclavicular joint; [place] [address] ROAD Preop examination; [phone] [place] [address] Elevated blood pressure reading; [phone] Gastroesophageal reflux disease without esophagitis; [phone] High cholesterol; (Fax) Encounter for preprocedural cardiovascular examination Allergies Active Allergy Reactions Severity Noted Date Comments Celecoxib GI Reaction 01/07/2008 Ibuprofen 01/07/2008 GI UPSET Naproxen Sodium GI Reaction 11/02/2013 documented as of this encounter (statuses as of 11/27/2019) Medications Medication Sig Dispensed Refills Start Date End Date Status Multiple Take by 0 Active Vitamins-Calcium mouth DAILY. (DAILY VITAMINS FOR WOMEN) Oral Tab cetirizine (ZYRTEC Take 10 mg 0 Active ALLERGY) 10 MG Oral by mouth Tab DAILY NEEDED. Esomeprazole Take 1 Cap 90 Cap 3 11/28/2017 Active (NEXIUM) 20 MG Oral by mouth CAPSULE DELAYED DAILY RELEASE NEEDED (for gerd). metronidazole Apply to 45 g 0 11/28/2017 Active (METROGEL) 0.75 % nose daily Apply externally as needed Gel meclizine Take 1 Tab 60 Tab 1 11/17/2015 Discontinued (ANTIVERT) 25 MG by mouth 0 (Patient stopped Oral THREE TIMES the medication) TabIndications: DAILY Vertigo NEEDED for dizziness/ve rtigo. documented as of this encounter (statuses as of 11/27/2019) Active Problems Problem Noted Date Diabetes mellitus type 2, without complication 11/24/2019 Irritable bladder 07/05/2014 BMI 34.0-34.9,adult 03/25/2012 Overview: This patient's BMI [...] as of this encounter (statuses as of 11/27/2019) Resolved Problems Problem Noted Date Resolved Date DVT (deep venous thrombosis) 07/05/2014 11/27/2019 Overview: left leg, after ankle fracture. Needs anticoagulation until mid December 2014 half-way (current) use of anticoagulants 07/02/2014 12/28/2014 Overview: Warfarin d/c by PCP 12/2014 Managed by: Jay [facility] Referring Provider: Boris Indication: DVT LLE Target Range: 2.0-3.0 Duration: Not Noted Additional factors influencing anticoagulation: Esomeprazole increases warfarin effect Ibuprofen increases bleeding risk Initial Referral: 07/01/14 Initial [facility] Orders: 07/12/14 Acute deep vein thrombosis of leg 07/01/2014 11/27/2019 documented as of this encounter (statuses as of 11/27/2019) Immunizations Name Administration Dates Next Due Influenza (IM) Preservative Free 09/13/2017 Influenza Vaccine Whole 07/23/2001 MMR VACCINE 04/28/2008 dT Vaccine 07/11/2004 documented as of this encounter Social History Tobacco Use Types Packs/Day Years Used Date Never Smoker Smokeless Tobacco: Never Used Comments: parents were smokers Alcohol Use Drinks/Week oz/Week Comments Not Asked 0 Standard drinks or equivalent 0.0 Sex Assigned at Date Recorded Not on file documented as of this encounter Last Filed Vital Signs Vital Sign Reading Time Taken Comments Blood Pressure 138/68 11/24/2019 2:00 PM EST Pulse 72 11/24/2019 2:00 PM EST Temperature - - Respiratory Rate - - Oxygen Saturation 95% 11/24/2019 2:00 PM EST Inhaled Oxygen Concentration - - Weight 113.4 kg (250 lb) 11/24/2019 2:00 PM EST Height - - Body Mass Index 45.73 07/07/2019 12:10 PM EDT documented in this encounter Patient Instructions Patient InstructionsTrae Orozco MD - 11/24/2019 2:10 PM ESTYou are medically stable and cleared to proceed with left shoulder arthroscopic surgery with Dr. Hassan. Continue all your medicines as before. Keep working on diet, exercise, and weight. Think about adding metformin 500 mg twice a day, for better control of sugar, and weight loss. If all okay, follow-up summer 2019 documented in this encounter Progress Notes Trae Orozco MD - 11/24/2019 2:10 PM EST PATIENT: Geraldine Weiss : 1955 DATE OF SERVICE: 11/24/2019 CHIEF COMPLAINT: Chief Complaint Patient presents with ? Pre-Op Exam left shoulder arthroscopic decompression on 12/11/19 at [facility] [place] Painting; ? Labs Only last done 11/17 at [facility]; need EKG done. Subjective HISTORY OF PRESENT ILLNESS: Geraldine Weiss is a 63-y.o. female. HPI She presents for preoperative assessment. She will be having left-sided shoulder arthroscopic surgery with Dr. Ranjit Hassan at [facility]. There is a planned arthroscopic decompression, with excision of the distal clavicle evaluation and treatment of the rotator cuff (likely patch) sepsis. This will be performed on December 11, 2019. Recent MRI of the left shoulder showed supraspinatus tendinopathy and partial-thickness tear, AC joint osteoarthritis, small volume of fluid at the subacromial subdeltoid bursa. Recent labs show unremarkable serum chemistries except for glucose 125, with satisfactory cholesterol of 180 HDL of 50.7 but LDL slightly elevated at 112. Hemoglobin A1c was elevated at 6.7%. This is1/10 of a point higher than it was last spring. Urine for microalbumin showed no microalbumin. Past Medical History: Diagnosis Date ? Allergic Rhinitis 01/07/2008 ? Asthma 01/07/2008 ? Depressive Disorder 01/07/2008 ? Displacement of Cervical Intervertebral Disc 01/07/2008 ? Dysmenorrhea 01/07/2008 ? Dysmenorrhea 01/07/2008 ? GERD 01/07/2008 ? Ovarian Cyst - Left Ovary 01/07/2008 ? Plantar fascial fibromatosis 01/07/2008 ? Pneumonia With Pleural Effusion - 1995 01/07/2008 ? Postmenopausal Past Surgical History: Procedure Laterality Date ? ANKLE ARTHROSCOPY 06/10/14 left, s/p fx, plates and pins ? SECTION NEC NO DATE SPECFIED X 2 ? COLONOSCOPY N/A 04/03/2017 Procedure: COLONOSCOPY; Surgeon: Iban Padilla Jr., MD; Location: [facility] GI OR ? CYSTOSCOPY for kidney stone 04/07/2018 ? [place] REMOVAL GALLBLADDER 1994 ? [place] REMOVE TONSILS/ADENOIDS,<12 Y/O A CHILD ? SHOULDER ARTHROSCOPY 09/15/15 right Family History Problem Relation Age of Onset ? Multiple Sclerosis Brother SKIN CANCER ? Cancer Brother SKIN CANCER Current Outpatient Medications Medication Sig ? cetirizine (ZYRTEC ALLERGY) 10 MG Oral Tab Take 10 mg by mouth DAILY NEEDED. ? Esomeprazole (NEXIUM) 20 MG Oral CAPSULE DELAYED RELEASE Take 1 Cap by mouth DAILY NEEDED(for gerd). ? metronidazole (METROGEL) 0.75 % Apply externally Gel Apply to nose daily as needed ? Multiple Vitamins-Calcium (DAILY VITAMINS FOR WOMEN) Oral Tab Take by mouth DAILY. No current facility-administered medications for this visit. Allergies Allergen Reactions ? Celebrex [Celecoxib] GI Reaction ? Motrin [Ibuprofen] GI UPSET ? Naproxen Sodium GI Reaction Social History Socioeconomic History ? Marital status: Spouse name: Not on file ? Number of children: Not on file ? Years of education: Not on file ? Highest education level: Not on file Occupational History ? Not on file Social Needs ? Financial resource strain: Not on file ? Food insecurity Worry: Not on file Inability: Not on file ? Transportation needs Medical: Not on file Non-medical: Not on file Tobacco Use ? Smoking status: Never Smoker ? Smokeless tobacco: Never Used ? Tobacco comment: parents were smokers Substance and Sexual Activity ? Alcohol use: Not on file ? Drug use: Not on file ? Sexual activity: Not on file Lifestyle ? Physical activity Days per week: Not on file Minutes per session: Not on file ? Stress: Not on file Relationships ? Social connections Talks on phone: Not on file Gets together: Not on file Attends adventist service: Not on file Active member of club or organization: Not on file Attends meetings of clubs or organizations: Not on file Relationship status: Not on file ? Intimate partner violence Fear of current or ex partner: Not on file Emotionally abused: Not on file Physically abused: Not on file Forced sexual activity: Not on file Other Topics Concern ? Not on file Social History Narrative ? Not on file REVIEW OF SYSTEMS: Review of Systems Constitutional: Positive for malaise/fatigue. Negative for weight loss. HENT: Negative for congestion. Sneezing more than normal. No fever, chills, sweats. Respiratory: Positive for shortness of breath (w exertion). Cardiovascular: Negative for chest pain and palpitations. Gastrointestinal: Positive for constipation. Negative for abdominal pain and heartburn. Genitourinary: Positive for urgency. Dr Hernandez told pt to stop oxybutynin at time she was being treated for stones. She notices lesscontrol of her bladder now since stopping it Musculoskeletal: Positive for joint pain (L shoulder). Skin: Negative. Neurological: Negative for seizures and loss of consciousness. Endo/Heme/Allergies: Does not bruise/bleed easily. Psychiatric/Behavioral: Negative. Objective PHYSICAL EXAM: VITALS: BP 138/68 (BP Location: Right arm, Patient Position: Sitting) | Pulse 72 | Wt 250 lb (113.4 kg) | SpO2 95% | BMI 45.73 kg/m Body mass index is 45.73 kg/m. Physical Exam Physical exam reveals a woman in no acute distress. Vitals as above. HEENT: Normocephalic, atraumatic. ADINA, EOMI. Mouth and ears unremarkable. Neck: No palpable lymphadenopathy in the submandibular, submental, anterior cervical, posterior cervical, or occipital chains, nor in the supraclavicular spaces. No JVD, thyromegaly. LUNGS: clear. HEART: Regular rate and rhythm. ABDOMEN: positive bowel sounds, soft, nontender, no hepatosplenomegaly, masses or bruits. EXTREMITIES: no cyanosis, clubbing, or edema. Distal radial, dorsalis pedis, and posterior tibial pulses are intact. SKIN: no suspicious rashes or lesions. MUSCULOSKELETAL: no acutely inflamed joints. Left shoulder with pain on range of motion. NEURO: Alert and oriented, cranial nerves II through XII grossly intact. No focal motor, sensory, or cerebellar findings. Gait and stance within normal limits. EKG done today shows normal sinus rhythm, no acute changes. Has borderline voltage criteria for left ventricular hypertrophy, but may be normal variant. ASSESSMENT / IMPRESSION: ICD-9-CM ICD-10-CM 1. Traumatic incomplete tear of left rotator cuff, initial encounter? medically stable and cleared to proceed with arthroscopic surgery of the left shoulder with Dr. Hassan 840.4 S46.012A 2. Type 2 diabetes mellitus without complication, without long-term current use of insulin (HCC) - The patient is asked to improve diet and exercise patterns to aid in medical management of this. Alsorecommended metformin 500 mg twice a day, which she says she will consider, but does not want to accept today 250.00 E11.9 3. Arthritis of left acromioclavicular joint?as per #1 716.91 M19.012 4. Preop examination V72.84 Z01.818 AMBULATORY 12 LEAD EKG (GLOBAL) 5. Elevated blood pressure reading?history of, okay today.Non pharmacologic methods of BP control reviewed including weight loss, exercise, salt and alcohol restriction. 796.2 R03.0 6. Gastroesophageal reflux disease without esophagitis?treated 530.81 K21.9 7. High cholesterol - The patient is also asked to make an attempt to improve diet and exercise patterns to aid in medical management of this. 272.0 E78.00 Patient Instructions You are medically stable and cleared to proceed with left shoulder arthroscopic surgery with Dr. Hassan. Continue all your medicines as before. Keep working on diet, exercise, and weight. Think about adding metformin 500 mg twice a day, for better control of sugar, and weight loss. If all okay, follow-up summer 2019 CC: Dr. Hassan author: Trae Orozco MD 11/24/2019 14:23 documented in this encounter Plan of Treatment Date Type Specialty Care Team Description 04/26/2020 Office Visit Internal Medicine Trae Orozco MD [facility] [place] [address] [phone] Health Maintenance Due Date Last Done Comments Diabetic Eye Exam 1955 URINE MICROALBUMIN 1955 PNEUMOCOCCAL 0-64 YRS (1 of 1961 1 - PPSV23) FOOT EXAM 1973 ZOSTER IMMUNIZATION SERIES 2005 (1 of 2) DTaP/Tdap/Td Vaccines (2 - 07/11/2014 07/11/2004 Tdap) MAMMOGRAM (SCREENING) 12/17/2018 12/17/2017, 11/30/2016, 10/20/2013, Additional history exists HEMOGLOBIN A1C 09/10/2019 03/10/2019, 01/28/2017 PAP SMEAR 01/24/2020 01/23/2017, 02/15/2012, 10/18/2008, Additional history exists LIPID DISORDER SCREENING 02/20/2020 02/19/2019, 07/25/2018, 01/28/2017, Additional history exists DEPRESSION SCREENING 07/07/2020 07/07/2019, 06/12/2018 INFLUENZA VACCINE (#1) 2020 09/13/2017, 07/23/2001 Postponed from 06/14/2019 (Patient refused) Colonoscopy 04/03/2022 04/03/2017, 04/03/2017, 09/25/2011 (Previously completed), Additional history exists HEPATITIS A IMMUNIZATION Aged Out No longer eligible SERIES based on patient's age to complete this topic HPV IMMUNIZATION SERIES Aged Out No longer eligible based on patient's age to complete this topic MENINGOCOCCAL VACCINE IMM Aged Out No longer eligible based on patient's age to complete this topic documented as of this encounter Goals Goal Patient Goal Associated Recent Patient-Stated? Author Type Problems Progress Depression Depression 3 (06/12/2018 cami Skinner (PHQ-9) 3:53 PM EDT) MD Trae total score < 5 Note: This is an individualized treatment (depression) goal for Geraldine Weiss: Displayed above is your goal for a depression screening (PHQ-9) score that would indicate good control of your depression. Glycohemoglobin A1c < 7.0 Diabetes 6.2 (01/28/2017 5:17 PM Trae Skinner MD EDT) Note: This is an individualized treatment (diabetes control, HgbA1C) goal for Geraldine Weiss: Displayed above is your progress towards your HgbA1C goal. Your goal is shown above (on the left); your most recent HgbA1C is shown on the right. Note that lower numbers are better. Keep a regular sleep schedule Lifestyle Trae Skinner MD Note: This is an individualized lifestyle goal for Geraldine Weiss: Please maintain a regular sleep schedule. This may help with some symptoms of depression. Weight loss vs. 18 mo Lifestyle 0 (11/24/2019 2:00 PM EST) Trae Skinner MD max (lbs) >= 10 Note: This is an individualized lifestyle goal for Geraldine Weiss: Your body mass index (BMI) is more than 30. You should lose weight. A reasonable starting goal is to lose 10 pounds. Displayed above is how many pounds you have lost thus far towards your 10 pound weight loss goal. Keep immunizations current Lifestyle Trae Skinner MD Note: This is an individualized lifestyle goal for Geraldine Weiss: Please be sure to keep up-to-date on recommended immunizations. For example, this would include a yearly influenza vaccine. Immunization status can be seen by looking at the Health Maintenance sections of your e[facility], Plan of Care, and any After Visit Summaries. Take all prescribed medications as directed Self-management Trae Skinner MD Note: This is an individualized [...] ongoing basis. documented as of this encounter Procedures Procedure Name Priority Date/Time Associated Diagnosis Comments AMBULATORY 12 LEAD Routine 11/24/2019 3:19 Preop examination Results for this EKG (GLOBAL) PM EST Encounter for procedure are in preprocedural the results cardiovascular section. examination documented in this encounter Results AMBULATORY 12 LEAD EKG (GLOBAL) (11/24/2019 3:19 PM EST) Ventricular Rate 74 BPM CARDIOLOGY DEPARTMENT Atrial rate 74 BPM CARDIOLOGY DEPARTMENT P-R Interval 168 ms CARDIOLOGY DEPARTMENT QRS Duration 82 ms CARDIOLOGY DEPARTMENT Q-T Interval 390 ms CARDIOLOGY DEPARTMENT QTC Calculation 432 ms CARDIOLOGY (Bezet) DEPARTMENT P Wayne 54 degrees CARDIOLOGY DEPARTMENT R Wayne -17 degrees CARDIOLOGY DEPARTMENT T [place] 41 degrees CARDIOLOGY DEPARTMENT Diagnosis Line Normal sinus rhythm CARDIOLOGY Minimal voltage criteria for LVH, may be normal variant DEPARTMENT Borderline ECG When compared with ECG of 22-AUG-2015 12:57, No significant change was found Confirmed by BONG REA, TRAE [id number]) on 11/27/2019 2:31:45 PM Specimen Performing Organization Address City/State/Zipcode Phone Number CARDIOLOGY DEPARTMENT documented in this encounter Visit Diagnoses Diagnosis Type 2 diabetes mellitus without complication, without long-term current use of insulin (HCC) Traumatic incomplete tear of left rotator cuff, initial encounter Arthritis of left acromioclavicular joint Preop examination Preoperative examination, unspecified Elevated blood pressure reading Elevated blood pressure reading without diagnosis of hypertension Gastroesophageal reflux disease without esophagitis Esophageal reflux High cholesterol Pure hypercholesterolemia Encounter for preprocedural cardiovascular examination Pre-operative cardiovascular examination documented in this encounter Insurance Payer Benefit Plan / Subscriber ID Effective Dates Phone Address Type Group POLA HOLLOWAY [id number] 2014-Present Pola ARROYO PPO Guarantor Name Account Type Relation to Date of Phone Billing Address Patient Geraldine Weiss Personal/Famil 1955 [address] [phone] [place], [place] (Work) [id number] documented as of this encounter"
--- OUTSIDE RECORDS SUMMARY | 2019-12-16 19:59 | XMS REPORT | Continuity of Care Document ---
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 Problems Active Problems Provider Date Strain of [...] Patient has never smoked Smoking Status Reviewed: 12/07/19 Patient has never smoked Exercise Type/Frequency Exercises sporadically Allergies, Adverse Reactions, Alerts Active Allergies Reaction Severity Comments Date Motrin stomach distress 02/02/2009 Naproxen 06/08/2014 NSAIDS 2019 Medications Active Medications SIG Qnty Indications Ordering Provider Date Zyrtec Allergy 1 by mouth 90tabs Unknown 10mg every day Tablets Omeprazole 1 by mouth Unknown 20mg Capsules every day DR Medications Administered in Office Medication SIG Qnty Indications Ordering Provider Date Depomedrol 40MG Ranjit Painting MD 08/27/2019 Injection Depomedrol 40MG Ranjit Painting MD 08/27/2019 Injection Immunizations Description No Information Available Vital Signs Date Vital Result Comment 2019 3:26pm Height 62 inches 5'2" Weight 247.50 lb Heart Rate 73 /min BP Systolic 118 mmHg BP Diastolic 62 mmHg Respiratory Rate 18 /min Pain Level 3 O2 % BldC Oximetry 98 % BMI (Body Mass Index) 45.3 kg/m2 11/27/2019 8:12am Height 62 inches 5'2" Weight 250.00 lb Heart Rate 76 /min BP Systolic Sitting 124 mmHg BP Diastolic Sitting 60 mmHg O2 % BldC Oximetry 95 % BMI (Body Mass Index) 45.7 kg/m2 Results Description No Information Available Procedures Date Code Description Status 10/20/2019 45578 Sleep Study Unattended,HRT Rate,Oxygen Sat,Resp Completed Effort/Airflow 08/27/2019 57876 Inject/Drain Joint/Bursa Major W/O US Completed 09/17/2006 26144401 Colonoscopy Completed Medical Devices Description No Information Available Encounters Type Date Location Provider Dx Diagnosis Office Visit 11/27/2019 [facility] G47.33 Obstructive sleep 8:30a [facility] [place] apnea (adult) Ez (pediatric) R53.83 Other fatigue Office Visit 10/29/2019 1:45p Felicitas Moore S46.012D Strain of [facility]oped[facility] at [facility] [place] rotator cuff of left shoulder, subs M75.52 Bursitis of left shoulder Office Visit 10/15/2019 3:00p [facility] Zarina Vásquez, R06.83 [facility] R53.83 Other fatigue Office Visit 10/12/2019 2:15p Felicitas Moore S46.012D Strain of [facility]opedics at [facility] [place] rotator cuff of left shoulder, subs M75.52 Bursitis of left shoulder Office Visit 08/27/2019 3:32p Felicitas Moore S46.012A Strain of [facility]opedics at [facility] [place] rotator cuff of left shoulder, init M75.52 Bursitis of left shoulder Assessments Date Code Description Provider 2019 S46.012D Strain of muscle(s) and tendon(s) of the Ranjit Painting MD rotator cuff of left shoulder, subsequent encounter 2019 M75.52 Bursitis of left shoulder Ranjit Painting MD 11/27/2019 G47.33 Obstructive sleep apnea (adult) Kesha [...] [place] NP at [facility]12/11/2019 7:45 am - CHAZ Leon at [facility] at [email or web address]/11/2019 7:45 am - Ranjit Painting MD at [facility] at [facility]8912/07/2019 - Ranjit Painting, MDS46.012D Strain of muscle(s) and tendon(s) of the rotator cuff of left shoulder, subsequent encounterFollow up:Follow up: 10-14 days post opM75.52 Bursitis of left shoulder Functional Status Description No Information Available Mental Status Description No Information Available Referrals Description No Information Available
--- OUTSIDE RECORDS SUMMARY | 2019-12-16 19:59 | XMS REPORT | Continuity of Care Document ---
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 Problems Active Problems Provider Date Strain of [...] Patient has never smoked Smoking Status Reviewed: 10/29/19 Patient has never smoked Exercise Type/Frequency Exercises [...] Available Vital Signs Date Vital Result Comment 10/29/2019 1:42pm Height 62 inches 5'2" Weight 241.00 lb BP Systolic 126 mmHg BP Diastolic 83 mmHg Respiratory Rate 16 /min Pain Level 3 BMI (Body Mass Index) 44.1 kg/m2 10/15/2019 2:15pm Height 62 inches 5'2" Weight 241.00 lb Heart Rate 84 /min BP Systolic Sitting 118 mmHg BP Diastolic Sitting 76 mmHg O2 % BldC Oximetry 96 % BMI (Body Mass Index) 44.1 kg/m2 Results Description No Information Available Procedures Date Code Description Status 08/27/2019 36138 Inject/Drain Joint/Bursa Major W/O US Completed 09/17/2006 26576583 Colonoscopy Completed Medical Devices Description No Information Available Encounters Type Date Location Provider Dx Diagnosis Office Visit 10/29/2019 [facility] Ranjit Moore S46.012D Strain of 1:45p at [facility]/tend the rotator cuff of left shoulder, subs M75.52 Bursitis of left shoulder Office Visit 10/15/2019 3:00p [facility] Zarina Vásquez R06.83 [facility] R53.83 Other fatigue Office Visit 10/12/2019 2:15p Felicitas Moore S46.012D Strain of Orthopedics at [facility]/tend the [place] rotator cuff of left shoulder, subs M75.52 Bursitis of left shoulder Office Visit 08/27/2019 8:30a [facility] Ranjit Moore M75.52 Bursitis of at Jay Painting MD left shoulder S46.012A Strain of musc/tend the rotator cuff of left shoulder, init Assessments Date Code Description Provider 10/29/2019 S46.012D Strain of muscle(s) and tendon(s) of the Ranjit Painting MD rotator cuff of left shoulder, subsequent encounter 10/29/2019 M75.52 Bursitis of left shoulder Ranjit Painting MD 10/15/2019 R06.83 Snoring Zarina Vásquez MD 10/15/2019 [...] rotator cuff of left shoulder, initial encounter 08/04/2019 S50.02xD Contusion of left elbow, subsequent Rony Hook MD encounter 08/04/2019 S80.02xD Contusion of left knee, subsequent Rony Hook MD encounter 08/04/2019 W19.xxxA Unspecified fall, initial encounter Rony Hook MD 08/04/2019 Z04.2 Encounter for examination and observation Rony Hook MD following work accident Plan of Treatment Future Appointment(s):12/01/2019 8:30 am - 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
--- NOTE | 2019-12-16 20:08 | ED ---
Upper Extremity Pain - HPI Summary HPI Summary: 64 year old F arriving via ambulance with complains of worsening left hand pain and left wrist pain described as tingly after waking up this morning. Patient thought she slept on her left hand weird. Patient had PT today. The pain worsened at PT. She states she has sharp pain radiating to her left wrist when she moves her left fourth and fifth fingers. She states the pain started to become most severe at 1700 today. She reports left thumb pain now, left hand swelling, left hand bruising. No left shoulder pain, left elbow pain, numbness. Symptoms rated 9/10 in severity. Symptoms aggravated by moving fingers. Symptoms alleviated by nothing. Had left rotator cuff surgery 12/11/[address] Painting. Medications reviewed. Not on anticoagulants. Not on pain medications. Allergies reviewed. Hx blood clots. - History of Current Complaint Chief Complaint: EDExtremityUpper Stated Complaint: LT WRIST PAIN PER EMS Time Seen by Provider: 12/16/19 20:05 Hx Obtained From: Patient Hx Last Menstrual Period: n/a Onset/Duration: Started Hours Ago - 12, Still Present Severity Currently: Severe - 9 Pain Location: Hand - L Character: Sharp Aggravating Factor(s): Movement Alleviating Factor(s): Nothing Associated Signs & Symptoms: Positive: Negative - left shoulder pain, left elbow pain, numbness, Other - gleft thumb pain, left hand swelling, left hand bruisin - Allergies/Home Medications Allergies/Adverse Reactions: Allergies Allergy/AdvReac Type Severity Reaction Status Date / Time NSAIDS (Non-Steroidal Allergy Abdominal Verified 12/11/19 09:39 Anti-Inflamma Pain Home Medications: Home Medications Esomeprazole(NF) [NEXium(NF)] 20 mg PO DAILY PRN 11/22/17 [History Confirmed ] Zyrtec mg PO ONCE 12/11/19 [History] PMH/Surg Hx/FS Hx/Imm Hx Endocrine/Hematology History: Reports: Hx Diabetes - NO MEDS TRYING TO CONYROL WITH DIET Denies: Hx Thyroid Disease Cardiovascular History: Denies: Hx Hypertension - usually normal til today, Hx Pacemaker/ICD, Other Cardiovascular Problems/Disorders Respiratory History: Reports: Hx Asthma - SLIGHT WITH BRONCHITIS,NO MEDS, Hx Sleep Apnea Denies: Other Respiratory Problems/Disorders GI History: Reports: Hx Gastroesophageal Reflux Disease - OCCASIONAL Denies: Hx Ulcer - DENIES History: Reports: Hx Kidney Stones - 2018, PASSED ON OWN Denies: Hx Renal Disease Musculoskeletal History: Reports: Hx Arthritis - SHOULDERS, KNEES, HAND, Other Musculoskeletal History - DDD NECK, USUALLY MINIMAL DISCOMFORT Sensory History: Reports: Hx Cataracts - STATES NO PROBLEMS YET, Hx Contacts or Glasses - WILL WEAR GLASSES DAY OF SURGERY Denies: Hx Deafness, Hx Hearing Aid Opthamlomology History: Reports: Hx Cataracts - STATES NO PROBLEMS YET, Hx Contacts or Glasses - WILL WEAR GLASSES DAY OF SURGERY Neurological History: Denies: Other Neuro Impairments/Disorders Psychiatric History: Denies: Hx Panic Disorder - Surgical History Surgery Procedure, Year, and Place: gallbladder, 1995, [facility]. 2 c-sections, 1975 , 1977. ANKLE FX, 2015, LEFT ANKLE, [facility]. TONSILECTOMY YOUNG CHILD. 2016 right rotator cuff [facility] Hx Anesthesia Reactions: Yes - SLOW TO WAKE UP - Immunization History Date of Tetanus Vaccine: Unk Date of Influenza Vaccine: None Infectious Disease History: No Infectious Disease History: Denies: Hx Clostridium Difficile, Hx Hepatitis, Hx Human Immunodeficiency Virus (HIV), Hx of Known/Suspected MRSA, Hx Shingles, Hx Tuberculosis, Hx Known/ Suspected VRE, Hx Known/Suspected VRSA, History Other Infectious Disease, Traveled Outside the [place] in Last 30 Days - Family History Known Family History: Positive: Hypertension, Respiratory Disease Family History: PROSTATE CANCER - DAD - Social History Alcohol Use: None Alcohol Amount: 1 PER WEEK Hx Substance Use: No Substance Use Type: Reports: None Hx Tobacco Use: No Smoking Status (MU): Never Smoked Tobacco Have You Smoked in the Last Year: No Review of Systems Musculoskeletal: Negative - left shoulder pain, left elbow pain Positive: Other - left hand pain, left wrist pain, left thumb pain, left hand swelling Positive: Bruising - L hand Neurological/Mental Status: Negative - numbness All Other Systems Reviewed And Are Negative: Yes Physical Exam - Summary Physical Exam Summary: Constitutional: Well-developed, Well-nourished, Alert. (-) Distressed Skin: Warm, Dry HENT: Normocephalic; Atraumatic Eyes: Conjunctiva normal Neck: Musculoskeletal ROM normal neck. (-) JVD, (-) Stridor, (-) Nuchal rigidity Cardio: Rhythm regular, rate normal, Heart sounds normal; Intact distal pulses; Radial pulses are 2+ and symmetric. (-) Murmur Pulmonary/Chest wall: Effort normal. (-) Respiratory distress, (-) Wheezes, (-) Rales Abd: Soft, (-) tenderness, (-) Distension, (-) Guarding, (-) Rebound Musculoskeletal: She has well-healing incision sites to the left shoulder. She has tenderness of the dorsal aspect of the left hand, mild swelling of fingers, mild ecchymosis of fingers, tenderness of the left wrist. 2+ radial pulses. No tenderness of shoulder or elbow on the left. Lymph: (-) Cervical adenopathy Neuro: Alert, Oriented x3 Psych: Mood and affect Normal Triage Information Reviewed: Yes Vital Signs On Initial Exam: Initial Vitals Temp Pulse Resp BP Pulse Ox 98.0 F 77 20 135/82 96 12/16/19 19:55 12/16/19 19:55 12/16/19 19:55 12/16/19 19:55 12/16/19 19:55 Vital Signs Reviewed: Yes Procedures - Sedation Patient Received Moderate/Deep Sedation with Procedure: No Diagnostics - Vital Signs Vital Signs Temp Pulse Resp BP Pulse Ox 12/16/19 19:55 98.0 F 77 20 135/82 96 - Laboratory Lab Statement: Any lab studies that have been ordered have been reviewed, and results considered in the medical decision making process. - Ultrasound Venous doppler study of left upper extremity Ultrasound Interpretation Completed By: Radiologist - IMPRESSION: No left upper extremity deep vein thrombosis. ED physician has reviewed this imaging report. Re-Evaluation - Re-Evaluation First Eval Re-Evaluation Time: 21:49 Change: Improved Comment: patient is feeling much better. she states she has pain medications at home. patient agrees to d/c Course/Dx - Course Course Of Treatment: 64 y/o F p/w L wrist pain. - recent surgery to L rotator cuff. Incision C/D/I. L wrist w miminal swelling and ecchymosis, no erythema. Afebrile, do not suspect infectious process. DVT US neg. Suspect 2/2 strain during PT. Given percocet here, can f/u w orthopedics. - Diagnoses Provider Diagnoses: Left wrist pain - Physician Notifications Discussed Care of Patient With: Kesha Adams Time Discussed With Above Provider: 20:22 Instructed by Provider To: Other - Dr. Adams, orthopedics, agrees with course of treatment Discharge ED - Sign-Out/Discharge Documenting (check all that apply): Patient Departure - Discharge Plan Condition: Stable Disposition: HOME Patient Education Materials: Arthralgia (ED) Referrals: Hal Orozco MD [Primary Care Provider] - Additional Instructions: You were seen in the emergency department for wrist pain. Your ultrasound did not show any blood clots. You can take pain medication at home as prescribed. Please call the orthopedic office tomorrow and let them know you were seen here. Please follow up with your primary care doctor in next 2-3 days and return to emergency department for worsening pain, fevers, drainage of her surgical site, or concerning symptoms. It was a pleasure taking care of you today. - Billing Disposition and Condition Condition: STABLE Disposition: Home - Attestation Statements Document Initiated by Juan: Yes Documenting Scribe: Julienne Henry Provider For Whom Juan is Documenting (Include Credential): Chandrakant Bullock MD Scribe Attestation: IJulienne, scribed for Chandrakant Bullock MD on 12/17/19 at 2047. Scribe Documentation Reviewed: Yes Provider Attestation: The documentation as recorded by the Julienne pérez accurately reflects the service I personally performed and the decisions made by , Chandrakant Bullock MD Status of Scribe Document: Viewed
[2019-12-16] MEDS ORDERED: oxyCODONE/Acetamin 5/325 MG* TAB PO ONE (20:15)
[2019-12-16 22:44] VITALS: BP 133/98
== END 2019-12-16 22:24 | disposition home or self-care (01) ==
LOC: ED 19:51
DX: M25.532 Pain in left wrist (principal); R60.9 Edema, unspecified; E11.44 Type 2 diabetes mellitus with diabetic amyotrophy; K21.9 Gastro-esophageal reflux disease without esophagitis; Z87.442 Personal history of urinary calculi
CPT/HCPCS: 99282; A9270-GY

== ENCOUNTER 2024-01-27 15:12 | Inpatient (IN) ==
[2024-01-27] MEDS: Lactated Ringers SEPSIS* BAG 3,130 ML IV ONE (16:24)
[2024-01-27 17:20] LABS: Urine Appearance Clear; Urine Bilirubin Negative (Negative); Urine Blood Negative (Negative); Urine Color Light-Yellow; Urine Glucose Negative (Negative); Urine Ketones Negative (Negative); Urine Nitrite Negative (Negative); Urine Protein Negative (Negative); Urine Urobilinogen Negative (Negative); Urine pH 7.5 (5.0-8.0)
[2024-01-27 17:21] LABS: ABS Lymphocytes 0.9 10^3/uL (1.0-4.8); ABS Monocytes 0.5 10^3/uL (0.0-0.9); ABS Neutrophils 5.7 10^3/uL (1.5-7.6); ABS Nucleated RBC 0.01 10^3/ul; Eosinophil % 0.1 %; Hematocrit 43.7 % (35-45); Mean Corpuscular Hemoglobin 30.3 pg (27-33); Mean Corpuscular Hgb Conc 34.3 g/dL (31-36); Mean Corpuscular Volume 88.3 fL (80-97); Nucleated Red Blood Cells % 0.1 %/100WBC (0.0-0.8); Platelet Count 199 10^3/uL (150-450); Red Blood Count 4.95 10^6/uL (3.63-4.92); Red Cell Distribution Width 12.9 % (12-17); White Blood Count 7.2 10^3/uL (3.8-11.8)
[2024-01-27 17:36] LABS: INR 1.03 (0.83-1.13)
[2024-01-27 17:46] LABS: Albumin 4.3 g/dL (3.2-5.2); Albumin/Globulin Ratio 1.6 (1-3); C Reactive Protein 6.83 mg/L (<8.01); Calcium 9.2 mg/dL (8.6-10.3); Creatinine, Serum 0.78 mg/dL (0.51-0.95); Globulin 2.7 g/dL (2-4); Potassium 4.4 mmol/L (3.5-5.0); Total Bilirubin 0.4 mg/dL (0.2-1.0); eGFR CKD-EPI 82.7 (>60)
[2024-01-27] MEDS ORDERED: HYDROmorphone 1 MG/1 ML SYRINGE IV PRN (19:46)
[2024-01-27] MEDS ORDERED: Vancomycin per Pharmacy 1 EA NOTE FOLLOW UP PRN (19:58)
[2024-01-27] MEDS: Enoxaparin 40 MG/0.4 ML SYR SUBCUT SCH (20:10)
[2024-01-27] MEDS ORDERED: Dextrose 50% Syringe 50 ml 25 GM/50 ML SYRINGE IV PUSH PRN (20:44)
[2024-01-27] MEDS: cefTRIAXone 2 gm/50 mL D5W 2 GM/50 ML BAG IV SCH (20:52)
[2024-01-27 21:05] LABS: TSH Ultra Thyroid Stim Horm 1.79 mcIU/mL (0.34-5.60)
[2024-01-27] MEDS: Vancomycin 1,500 MG in NS 0.9% 250 ml 250 ML IVPB ONE (21:09)
[2024-01-27] MEDS: Iodixanol (CONTRAST) 320 MG/ML 100 ML SDV IV ONE (21:22)
[2024-01-28 05:40] LABS: Hematocrit 40.6 % (35-45); Hemoglobin 13.7 g/dL (11.5-14.3); Mean Corpuscular Hemoglobin 30.1 pg (27-33); Mean Corpuscular Hgb Conc 33.6 g/dL (31-36); Mean Corpuscular Volume 89.4 fL (80-97); Mean Platelet Volume 8.9 fL (7.5-11.2); Platelet Count 135 10^3/uL (150-450); Red Blood Count 4.54 10^6/uL (3.63-4.92); Red Cell Distribution Width 12.9 % (12-17); White Blood Count 4.1 10^3/uL (3.8-11.8)
[2024-01-28 06:03] LABS: Calcium 8.3 mg/dL (8.6-10.3); Creatinine, Serum 0.87 mg/dL (0.51-0.95); Potassium 3.4 mmol/L (3.5-5.0); eGFR CKD-EPI 72.5 (>60)
[2024-01-28] MEDS: Vancomycin 1,250 MG in NS 0.9% 250 ml 250 ML IVPB SCH (11:06)
[2024-01-28] MEDS: Lidocaine PATCH 5% PATCH TRANSDERM ONE (14:54)
[2024-01-28] MEDS: Potassium Chlor 20 meq TAB.ER PO ONE (18:00)
[2024-01-28] MEDS ORDERED: cefTRIAXone 2 gm/50 mL D5W 2 GM/50 ML BAG IV SCH (20:00)
[2024-01-28] MEDS ORDERED: Vancomycin 1,250 MG in NS 0.9% 250 ml 250 ML IVPB SCH (21:00)
[2024-01-28] MEDS ORDERED: Senna TAB 8.6 mg TAB PO PRN (22:26)
[2024-01-29] MEDS: Polyethylene Glycol 3350 17 GM PACKET PO PRN (01:47)
[2024-01-29 02:59] LABS: Anion Gap 10 mmol/L (2-16); Blood Urea Nitrogen 14 mg/dL (6-24); CO2 Carbon Dioxide 22 mmol/L (22-32); Chloride 101 mmol/L (101-111); Creatinine, Serum 0.78 mg/dL (0.51-0.95); Glucose 162 mg/dL (70-100); Hematocrit 39.4 % (35-45); Hemoglobin 13.5 g/dL (11.5-14.3); Mean Corpuscular Hemoglobin 30.3 pg (27-33); Mean Corpuscular Hgb Conc 34.3 g/dL (31-36); Mean Corpuscular Volume 88.1 fL (80-97); Potassium 3.9 mmol/L (3.5-5.0); Red Blood Count 4.47 10^6/uL (3.63-4.92); Red Cell Distribution Width 13.2 % (12-17); Sodium 133 mmol/L (135-145); White Blood Count 4.2 10^3/uL (3.8-11.8); eGFR CKD-EPI 82.7 (>60)
[2024-01-29 03:05] LABS: CRP High Sensitivity > 80.00 mg/L (<2.00)
[2024-01-29 03:40] LABS: Osmolality Serum 284 mOsm/kg (275-295)
[2024-01-29] MEDS: Lactated Ringers 1000 ml BAG 1,000 ML IV SCH (03:41)
[2024-01-29 03:44] LABS: ABS Lymphocytes 0.4 10^3/uL (1.0-4.8); ABS Monocytes 0.1 10^3/uL (0.0-0.9); ABS Neutrophils 3.7 10^3/uL (1.5-7.6); Lymphocyte % 9.7 %; Mean Platelet Volume 9.5 fL (7.5-11.2); Nucleated Red Blood Cells % 0.1 %/100WBC (0.0-0.8); Platelet Count 77 10^3/uL (150-450)
[2024-01-29 04:40] LABS: ALT 83 U/L (7-52); AST 102 U/L (13-39); Albumin 3.3 g/dL (3.2-5.2); Albumin/Globulin Ratio 1.5 (1-3); Alkaline Phosphatase 56 U/L (35-149); Globulin 2.2 g/dL (2-4); Magnesium 1.5 mg/dL (1.9-2.7); Total Bilirubin 0.8 mg/dL (0.2-1.0); Total Protein 5.5 g/dL (6.4-8.9)
[2024-01-29 05:00] LABS: Ferritin 535.3 ng/mL (11-307)
[2024-01-29 05:18] LABS: Erythrocyte Sed Rate 20 mm/Hr (0-29)
[2024-01-29] MEDS: Magnesium Sulf 4 GM/100 ML IV 4,000 MG/100 ML BAG IVPB ONE (05:22)
[2024-01-29] MEDS: Al Hydrox/Mg Hydrox/Simet LIQ 30 ML UDC PO ONE (05:39)
[2024-01-29] MEDS ORDERED: Vancomycin Trough Check NOTE FOLLOW UP ONE (08:30)
[2024-01-29 08:33] LABS: C Reactive Protein 131.04 mg/L (<8.01); Vancomycin Trough 5.6 mcg/mL
[2024-01-29] MEDS: Magnesium Sulfate 2 gm BAG 2 GM/50 ML BAG IVPB ONE (08:58)
[2024-01-29] MEDS ORDERED: Magnesium Sulfate IV 1GM/100ML 1 GM/100 ML BAG IV ONE (09:58)
[2024-01-29] MEDS: Calcium Carb (TUMS) 500 mg CHEW TAB PO ONE (19:54)
[2024-01-29] MEDS: Ondansetron 4 mg VIAL 2 MG/ML 2 ml VIAL IV PRN (22:16)
[2024-01-30 06:34] LABS: Hematocrit 38.8 % (35-45); Hemoglobin 13.3 g/dL (11.5-14.3); Mean Corpuscular Hemoglobin 29.8 pg (27-33); Mean Corpuscular Hgb Conc 34.2 g/dL (31-36); Mean Corpuscular Volume 87.1 fL (80-97); Red Blood Count 4.45 10^6/uL (3.63-4.92); Red Cell Distribution Width 13.2 % (12-17); White Blood Count 1.7 10^3/uL (3.8-11.8)
[2024-01-30 06:58] LABS: Calcium 7.9 mg/dL (8.6-10.3); Creatinine, Serum 0.65 mg/dL (0.51-0.95); Magnesium 2.1 mg/dL (1.9-2.7); Potassium 3.9 mmol/L (3.5-5.0); eGFR CKD-EPI 95.8 (>60)
[2024-01-30 07:15] LABS: ABS Lymphocytes 0.6 10^3/uL (1.0-4.8); ABS Monocytes 0.2 10^3/uL (0.0-0.9); ABS Neutrophils 0.9 10^3/uL (1.5-7.6); Lymphocyte % 36.7 %; Mean Platelet Volume 10.1 fL (7.5-11.2); Nucleated Red Blood Cells % 0.2 %/100WBC (0.0-0.8); Platelet Count 46 10^3/uL (150-450)
[2024-01-30 14:34] LABS: Anaplasma phagocytophilum Positive (Negative); B. miyamotoi PCR, B Negative (Negative); Babesia divergens/MO-1 Negative (Negative); Babesia ducani Negative (Negative); Ehrlichia chaffeensis Negative (Negative); Ehrlichia ewingii/canis Negative (Negative); Ehrlichia muris eauclairensis Negative (Negative)
[2024-01-30 15:11] LABS: Urine Osmo 997 mOsm/kg (150-1150)
[2024-01-30] MEDS: Calcium Carb (TUMS) 500 mg CHEW TAB PO PRN (17:20)
[2024-01-30] MEDS: Al Hydrox/Mg Hydrox/Simet LIQ 30 ML UDC PO ONE (21:56)
[2024-01-30] MEDS: Calcium Carb (TUMS) 500 mg CHEW TAB PO ONE (21:57)
[2024-01-31] MEDS: Prochlorperazine 5 mg/ml 2 ml VIAL (10 mg) IV ONE (02:13)
[2024-01-31 06:22] LABS: Albumin 3.1 g/dL (3.2-5.2); Albumin/Globulin Ratio 1.3 (1-3); Creatinine, Serum 0.77 mg/dL (0.51-0.95); Globulin 2.3 g/dL (2-4); Total Bilirubin 0.5 mg/dL (0.2-1.0); Total Protein 5.4 g/dL (6.4-8.9)
[2024-01-31] MEDS ORDERED: Prochlorperazine 5 mg/ml 2 ml VIAL (10 mg) IV PRN (07:47)
[2024-01-31 08:03] LABS: ABS Lymphocytes 1.5 10^3/uL (1.0-4.8); ABS Monocytes 0.4 10^3/uL (0.0-0.9); ABS Neutrophils 0.7 10^3/uL (1.5-7.6); ABS Nucleated RBC 0.01 10^3/ul; Eosinophil % 0.2 %; Hematocrit 38.5 % (35-45); Hemoglobin 13.1 g/dL (11.5-14.3); Lymphocyte % 57.5 %; Mean Corpuscular Hemoglobin 30.1 pg (27-33); Mean Corpuscular Hgb Conc 34.1 g/dL (31-36); Mean Corpuscular Volume 88.4 fL (80-97); Mean Platelet Volume 9.9 fL (7.5-11.2); Nucleated Red Blood Cells % 0.3 %/100WBC (0.0-0.8); Platelet Count 69 10^3/uL (150-450); RBC Morphology Normal (Normal); Red Blood Count 4.36 10^6/uL (3.63-4.92); Red Cell Distribution Width 13.4 % (12-17); White Blood Count 2.6 10^3/uL (3.8-11.8)
[2024-01-31 10:27] VITALS: BP 140/56
[2024-02-01 17:37] LABS: Anaplasma phagocytophilum Positive (Negative); Ehrlichia chaffeensis Negative (Negative); Ehrlichia ewingii/canis Negative (Negative); Ehrlichia muris eauclairensis Negative (Negative)
== END 2024-01-31 15:00 | disposition home or self-care (01) | DRG 872 ==
LOC: EDHOLD 15:12 → ED 15:12 → MEDTELE 01-28 14:20 → SUATTDRO 01-29 11:00
PROVIDERS: ADMIT Internal Medicine; ATTEND Student in an Organized Health Care Education/Training Program